=== PATIENT | female | born 1965 | race Caucasian/White ===

== ENCOUNTER → 2018-05-20 | Outpatient (CLI) | payer MEDICAID ==
[~2018-05-20] MED LIST: CETI10TA20 PO; CYCL10TA9 PO; GABA-488 PO; Oxycodone Hcl PO
--- NOTE | 2018-05-20 12:50 | Diagnostic Imaging Report ---
CLINICAL INDICATION: Patient with cervicalgia. EXAMINATION: MRI of the cervical spine performed without IV contrast. Sequences include sagittal T2, sagittal T1, sagittal T2 fat-sat, and axial T2. COMPARISON: CT scan of the cervical spine dated 06/09/2016. FINDINGS: There are interval postop changes to the cervical spine with placement of C5 through C7 posterior cervical fusion hardware with susceptibility artifact obscuring the region. Again seen C5 through C7 anterior cervical disc fusion. There is no paraspinal soft tissue fluid collection seen. Limited visualization of the posterior fossa is unremarkable. The susceptibility artifact obscures portions of the cervical cord in the region, but otherwise the cervical cord shows no significant abnormality as visualized. C1-C2: There are degenerative spurs involving the atlantoodontoid interval anteriorly. There is no significant central canal narrowing. C2-C3: There is again seen hmtr-jb-zsmrnquo left facet arthropathy with moderate left neural foramen narrowing which is also seen on the prior study. There is no significant central canal narrowing. C3-C4: There is moderate left facet arthropathy and mild right facet arthropathy. There is mild right neural foramen narrowing and severe left neural foramen narrowing which has progressed. There is mild central canal narrowing. C4-C5: There is a small central posterior disc extrusion/herniation, moderate left facet arthropathy and mild right facet arthropathy. There is no significant right neural foramen narrowing. There is zjbremxt-jx-ycnysb left neural foramen narrowing which appears to have minimally progressed. There is moderate central canal narrowing. C5-C6: There is ligamentum flavum buckling and posterior vertebral body prominence which causes moderate central canal narrowing. Patient also was noted to have a central canal narrowing from posterior spurs in the prior study. The neural foramen regions are obscured by susceptibility artifact. C6-C7: There is no significant neural foramen narrowing as visualized. There is no significant central canal narrowing. C7-T1: There is a minimal sized posterior disc bulge. There is no significant central canal or neural foramen narrowing. IMPRESSION: 1.: Interval postop changes to the cervical spine with placement of C5 through C7 posterior spinal fusion hardware. There is again seen C5 through C7 anterior cervical disc fusion. There is no paraspinal fluid collection seen. Susceptibility hardware artifact obscures portions of this exam in the region, as described above. 2: There is a C4-C5 posterior disc herniation and left facet arthropathy which causes zdlvftkx-hb-nifitk left neural foramen narrowing and moderate central canal narrowing. It is difficult to compare to prior study, as prior study did not show the central canal soft tissue as well as this MRI. 3: Again seen moderate central canal narrowing at the C5-C6 level due to ligamentum flavum buckling and posterior vertebral body prominence. Dictated by: Dictated on workstation # [id number]
== END ==
LOC: RAD 10:30
PROVIDERS: ATTEND Physician Assistant
DX: M48.02 Spinal stenosis, cervical region (principal); M47.812 Spondylosis without myelopathy or radiculopathy, cervical region; M50.20 Other cervical disc displacement, unspecified cervical region; Z98.1 Arthrodesis status
CPT/HCPCS: 72141

== ENCOUNTER → 2018-11-29 | Outpatient (CLI) | payer MEDICAID ==
--- NOTE | 2018-11-29 10:53 | Diagnostic Imaging Report ---
Indication: Arthritis and chronic knee pain. Time of exam: 10:39 AM Multiple views bilateral knees were obtained. Both knees demonstrate severe medial compartmental degenerative change. There is complete loss of the medial compartment joint spaces. There is also significant patellofemoral degenerative change bilaterally. Prominent marginal osteophytes are present. The lateral compartments are fairly well maintained. Articular surfaces are smooth. No fracture, dislocation or effusion is seen. Impression: Severe degenerative changes bilaterally. No acute bony abnormality is detected. Dictated by: Dictated on workstation # [id number]
== END ==
LOC: RAD FS 10:31
PROVIDERS: ATTEND Nurse Practitioner
DX: M17.0 Bilateral primary osteoarthritis of knee (principal)

== ENCOUNTER → 2019-05-31 | Outpatient (CLI) | payer MEDICAID ==
--- NOTE | 2019-05-31 10:57 | Diagnostic Imaging Report ---
INDICATION: Screening for osteoporosis. COMPARISON: None. FINDINGS: There are no prior studies available for comparison. The bone mineral density of the hips and spine was measured. The T score for the spine is 1.0. This value is well within normal limits. The total T score for the left hip is 0.1. This value is also within normal limits. The T score for the left femoral neck is -1.1. This does indicate mild osteopenia. The total T score for the right hip is -0.7. This value also falls within the range of normal but the T score for the right femoral neck is -1.3 and this indicates mild osteopenia. AP Spine L1-L4: [BMD (g/cm2): 1.315] [T-Score: 1.0] [Z-Score: 0.6] [BMD Previous: na] [BMD % Change: na] LT Hip Neck: [BMD (g/cm2): 0.883] [T-Score: -1.1] [Z-Score: -0.8] LT Hip Total: [BMD (g/cm2):1.023] [T-Score:0.1] [Z-Score: 0.0] [BMD Previous: na] [BMD % Change: na] RT Hip Neck: [BMD (g/cm2):0.864] [T-Score:-1.3] [Z-Score:-1.0] RT Hip Total: [BMD (g/cm2):0.914] [T-score:-0.7] [Z-Score:-0.9] [BMD Previous:na] [BMD % Change:na] *Indicates significant change from prior examination based on 95% confidence level. World Health Organization criteria for BMD interpretation classify patients as Normal (T-score at or above -1.0), Osteopenic (T-score between -1.0 and -2.5) or Osteoporotic (T-score at or below -2.5). LIMITATIONS AND MODIFICATION: None. FRACTURE RISK (FRAX SCORE): The ten year probability of (%): Major Osteoporotic Fracture: [na] Hip Fracture: [na] IMPRESSION: 1. The bone mineral density of the spine and the total hip scores are within normal limits. 2. The T-scores for the femoral necks do indicate mild osteopenia however. 3. See below National Osteoporosis Foundation guidelines on when to potentially initiate pharmacologic therapy. Based on the National Osteoporosis Foundation Guidelines, pharmacologic treatment should be initiated in any of the following, unless clinical conditions suggest otherwise: * Any patient with prior fragility fracture of the hip or vertebrae. A spine fracture indicates 5X risk for subsequent spine fracture and 2X risk for subsequent hip fracture. * Osteoporosis (T-score <-2.5). * Postmenopausal women and men age 50 and older with low bone mass/osteopenia (T-score between -1.0 and -2.5) by DXA and 10-year major osteoporotic fracture greater than 20% or a 10-year probability of hip fracture greater than 3%. These fracture risks are supplied above in the FRAX score, if applicable. * Clinician judgement and/or patient preferences may indicate treatment for people with 10-year fracture probabilities above or below these levels. Dictated by: Dictated on workstation # [id number]
--- NOTE | 2019-06-02 18:39 | Diagnostic Imaging Report ---
EXAMINATION: Digital mammogram bilateral screening. The current study was also evaluated with a Computer Aided Detection (CAD) system. 3-D tomosynthesis was also performed and reviewed. INDICATION: Screening. This study was compared to the prior exams of 08/12/2016 and 06/07/2015. At this time, there are no current complaints. FINDINGS: There are scattered fibroglandular densities in both breasts which could obscure a lesion. When compared to the prior study, there has been no significant change. There is no primary or secondary sign of malignancy noted. The 3D tomographic views also fail to show any sign of malignancy. IMPRESSION: 1. There is no evidence of malignancy. 2. The patient should have her annual bilateral screening mammogram on schedule in May 2020. ACR BI-RADS Category 1: Negative. Result letter will be mailed to the patient. Note: At least 10% of breast cancer is not imaged by mammography. Dictated by: Dictated on workstation # [id number]
== END ==
LOC: RAD 08:49
PROVIDERS: ATTEND Nurse Practitioner Primary Care
DX: Z13.820 Encounter for screening for osteoporosis (principal); Z12.31 Encounter for screening mammogram for malignant neoplasm of breast; M85.89 Other specified disorders of bone density and structure, multiple sites; N95.9 Unspecified menopausal and perimenopausal disorder
CPT/HCPCS: 77067; 77080

== ENCOUNTER 2019-06-06 12:59 | Outpatient (CLI) | payer MEDICAID ==
[~2019-06-06] VITALS: Ht 157.5 cm; Wt 112.9 kg
[2019-06-06 13:07] VITALS: BP 122/78
[2019-06-06 13:45] LABS: BASOPHILS # (AUTO) 0.1 10^3/uL (0.0-0.1); BASOPHILS % (AUTO) 1 % (0-10); EOSINOPHILS # (AUTO) 0.1 10^3/uL (0.0-0.3); EOSINOPHILS % (AUTO) 1 % (0-10); HEMATOCRIT 39 % (35-52); HEMOGLOBIN 12.8 G/DL (11.5-16.0); LYMPHOCYTES # (AUTO) 2.7 X 10^3 (1.0-4.0); LYMPHOCYTES % (AUTO) 27 % (12-44); MEAN CORPUSCULAR HEMOGLOBIN 31 PG (25-34); MEAN CORPUSCULAR HGB CONC 33 G/DL (32-36); MEAN CORPUSCULAR VOLUME 94 FL (80-99); MEAN PLATELET VOLUME 9.9 FL (7.4-10.4); MONOCYTES # (AUTO) 0.7 X 10^3 (0.0-1.0); MONOCYTES % (AUTO) 7 % (0-12); NEUTROPHILS # (AUTO) 6.3 X 10^3 (1.8-7.8); NEUTROPHILS % (AUTO) 64 % (42-75); PLATELET COUNT 327 10^3/uL (130-400); RED CELL DISTRIBUTION WIDTH 14.1 % (10.0-14.5); WHITE BLOOD COUNT 9.8 10^3/uL (4.3-11.0)
--- NOTE | 2019-06-06 13:52 | Diagnostic Imaging Report ---
Indication: Preop knee arthroplasty PA and lateral chest Heart size and pulmonary vascularity are normal. Lungs are clear. There are no effusions or pneumothoraces. IMPRESSION: Negative chest Dictated by: Dictated on workstation # [id number]
[2019-06-06 13:59] LABS: BILIRUBIN,URINE NEGATIVE (NEGATIVE); CLARITY,URINE CLEAR; COLOR,URINE YELLOW; GLUCOSE, URINE (UA) NEGATIVE (NEGATIVE); KETONES,URINE NEGATIVE (NEGATIVE); LEUKOCYTE ESTERASE ,URINE 1+ (NEGATIVE); NITRITE,URINE NEGATIVE (NEGATIVE); PH,URINE 8 (5-9); PROTEIN,URINE NEGATIVE (NEGATIVE); UROBILINOGEN,URINE 1 MG/DL (NORMAL)
[2019-06-06 14:00] LABS: INR 1.1 (0.8-1.4); PROTHROMBIN TIME PATIENT 14.2 SEC (12.2-14.7)
[2019-06-06 14:06] LABS: ALANINE AMINOTRANSFERASE 15 U/L (0-55); ALBUMIN 3.9 GM/DL (3.2-4.5); ALKALINE PHOSPHATASE 101 U/L (40-136); BILIRUBIN,TOTAL 0.4 MG/DL (0.1-1.0); BUN/CREATININE RATIO 14; CALCIUM 9.1 MG/DL (8.5-10.1); CARBON DIOXIDE 28 MMOL/L (21-32); CHLORIDE 107 MMOL/L (98-107); CREATININE SERUM 0.79 MG/DL (0.60-1.30); GFR ESTIMATED > 60; GLUCOSE 98 MG/DL (70-105); SODIUM 142 MMOL/L (135-145); TOTAL PROTEIN 6.9 GM/DL (6.4-8.2)
[2019-06-06 14:07] LABS: BACTERIA,URINE FEW /HPF
[2019-06-06 14:18] LABS: ERYTHROCYTE SEDIMENTATION RATE 23 MM/HR (0-30)
[2019-06-06] MEDS ORDERED: METH2.5T PO (15:01)
[2019-06-06] MEDS ORDERED: FOLI1TAB24 PO (15:01)
[2019-06-06] MEDS ORDERED: GABA800T10 PO (15:01)
[2019-06-06] MEDS ORDERED: CETI1TAB61 PO (15:28)
== END 2019-06-06 13:55 | disposition home or self-care (01) ==
LOC: PREOP 12:59
PROVIDERS: ATTEND Orthopaedic Surgery
DX: M17.12 Unilateral primary osteoarthritis, left knee (principal)
CPT/HCPCS: 36415; 71046; 80053; 81000; 85025; 85610; 85652; 86850; 86900; 86901; 87081; 87088

== ENCOUNTER 2019-06-08 07:23 | Inpatient (IN) | payer MEDICAID ==
--- NOTE | 2019-06-03 07:20 | HISTORY AND PHYSICAL ---
DATE OF SERVICE: ADMISSION HISTORY AND PHYSICAL This will be for inpatient admission on 06/01/2019 for left total knee arthroplasty. The patient will require regular inpatient admission due to gait abnormalities, pain management and need for physical therapy. HISTORY OF PRESENT ILLNESS: The patient is a 53-year-old female with known osteoarthritis of bilateral knees. Radiographs revealed severe tricompartmental osteoarthritis. She reports that she has lost 25 pounds and has continued to lose weight. She has undergone treatment with injections, anti-inflammatories and rest, but has had progressive worsening of her knee pain and because of this, she elected to proceed with surgical intervention. REVIEW OF SYSTEMS: No chest pain, no shortness of breath, no dysuria. PAST MEDICAL HISTORY: Anxiety disorder, osteoarthritis. PAST SURGICAL HISTORY: Carpal tunnel release, cervical spine and shoulder arthroscopy. FAMILY HISTORY: Significant for cancer. PRIMARY CARE PROVIDER: Dr. Harris. MEDICATIONS: Gabapentin, Zyrtec, methotrexate and folic acid. ALLERGIES: IBUPROFEN, ALEVE, TYLENOL, BENADRYL and BACTRIM. SOCIAL HISTORY: The patient denies alcohol, tobacco use. PHYSICAL EXAMINATION: GENERAL: The patient is well developed, well-nourished, in no acute distress. HEENT: Normocephalic, atraumatic. Pupils are equal, round, reactive to light. Oropharynx is clear. NECK: Supple, no lymphadenopathy. LUNGS: Clear to auscultation bilaterally. HEART: Regular rate and rhythm. ABDOMEN: Soft, nontender, nondistended. EXTREMITIES: The left knee demonstrates varus alignment. She has a moderate effusion noted. There is no erythema or warmth. She ambulates with an antalgic gait. Range of motion is 0/3/125. There is no varus valgus laxity. Negative anterior and posterior drawer. IMPRESSION: Left knee severe osteoarthritis. PLAN: Left total knee arthroplasty. The risks, benefits, options, ramifications and recovery have been discussed at length with the patient. She understands and wishes to proceed. Job ID: [id number] DocumentID: [id number] Dictated Date: 05/20/2019 11:18:43 Mineral Engineer Date: 05/20/2019 12:54:32 Dictated By: STEFAN EVANS MD
--- NOTE | 2019-06-06 15:29 | NUR ---
CALLED [facility] IN [place] TO VERIFY PRESCRIPTIONS ENTERED IN PREOP. [facility] [facility] FILLED: 05-30-19 GABAPENTIN 800MG TID 05-13-19 FOLIC ACID 1MG DAILY ON DAYS NOT TAKE METHOTREXATE 05-13-19 METHOTREXATE 2.5MG 6 TABS ONCE WEEKLY 05-13-19 ZYRTEC D 12 HOURS BID
[~2019-06-08] VITALS: Ht 157 cm; Wt 112.9 kg
[2019-06-08] VITALS (10 sets, daily range): BP systolic 114–146; BP diastolic 65–97
[~2019-06-08 07:23] MED LIST changes: +CETI1TAB61 PO; +FOLI1TAB24 PO; +GABA800T10 PO; +METH2.5T PO
[2019-06-08] MEDS ORDERED: LORATADINE (CLARITIN) 10 MG TAB PO PRN (07:30)
[2019-06-08] MEDS ORDERED: morphine PCA 100 MG/100 ML BAG IV PRN (07:30)
--- NOTE | 2019-06-08 07:35 | Progress Note-Pre Operative ---
Pre-Operative Progress Note H&P Reviewed The H&P was reviewed, patient examined and no changes noted. Date Seen by Provider: Jun 08, 2019 Time Seen by Provider: 07:35 Date H&P Reviewed: Jun 08, 2019 Time H&P Reviewed: 07:35 Pre-Operative Diagnosis: left knee primary osteoarthritis STEFAN EVANS MD Jun 08, 2019 07:35
--- NOTE | 2019-06-08 07:36 | Progress Note-Post Operative ---
Post-Operative Progess Note Surgeon (s)/Plan Rep (s) Surgeon STEFAN EVANS MD Plan Rep: Guille Vidal Pre-Operative Diagnosis left knee primary osteoarthritis Post-Operative Diagnosis left knee primary osteoarthritis Procedure & Operative Findings Date of Procedure 06/08/19 Procedure Performed/Findings left total knee arthroplasty Anesthesia Type GETA Estimated Blood Loss Estimated blood loss (mL): minimal Specimens/Packing Specimens Removed none Packing: none STEFAN EVANS MD Jun 08, 2019 07:36
[2019-06-08] MEDS ORDERED: OXYC1TAB87 PO (07:37)
--- NOTE | 2019-06-08 07:39 | D/C HH Face to Face Order ---
D/C Face to Face Orders Reconcile Patient Problems Problems Reviewed?: Yes Instructions for Patient [facility] [employer], Patient Instructions/FollowUp: three weeks Physician to follow Patient: three weeks Discharge Diet for Home: Regular Diet Patient Data-Allergies,Ht & Wt Patient Allergies: Coded Allergies: acetaminophen (Verified Allergy, Unknown, ITCH ALL OVER, 11/19/15) diphenhydramine (Verified Allergy, Unknown, EYES SWELL , 11/19/15) ibuprofen (Verified Allergy, Unknown, EYES SWELL, 11/19/15) naproxen (Verified Allergy, Unknown, EYE SWELLS, 11/19/15) sulfamethoxazole (Verified Allergy, Unknown, Itching, 06/06/19) trimethoprim (Verified Allergy, Unknown, Itching, 06/06/19) Height (Feet): 5 Height (Inches): 2.00 Weight (Pounds): 297 Weight (Ounces): 1.0 Home Health Need/Face to Face Date of Face to Face: Jun 08, 2019 Clinical Findings: Instability, Muscle weakness, Pain with ambulation, Unsteady gait I have seen Pt itht-bp-kpyz: Yes Discharged To: Home Diagnosis/Conditions: left total knee arthroplasty Patient is Homebound due to: Nery fall risk due to instabilty, Muscle weakness, Pain w/ambulation Homebound Status Due to the above stated illness, injury or surgical procedure (medical condition or diagnosis) and associated clinical findings, the patient is homebound because of his/her inability to leave home except with aid of a supportive device and/or person AND leaving the home requires a considerable and taxing effort or is medically contraindicated. Pt req the following assistanc: [facility] Nursing Orders Home Health Services Order: Physical Therapy-Evaluate & Treat DC knee karen and apply steri strips 06/22/19 OK to begin on Thursday Therapy Orders Therapy Orders: Physical Therapy, PT to assess for OT Therapy Specific Orders: Eval assistive deivces, Teach enviro modific ations/safety, Gait training, Increase strength/endurance, Provider maintenance therapy, Restore ROM Certify Stmt I certify that this patient is under my care and that I, a nurse practitioner or a physician; a hr administrative assistant working with me, had a face to face encounter that - meets the physician face to face encounter requirements with this patient as dated. STEFAN EVANS MD Jun 08, 2019 07:39
[2019-06-08] MEDS ORDERED: CEFUROXIME INJECTION 1,500 MG in WATER (STERILE) FOR INJECTION 15 ML IV ONE (07:45)
[2019-06-08] MEDS ORDERED: CATHETER FLUSH 10 ML SYR IV PRN (08:00)
[2019-06-08] MEDS ORDERED: INTRA-ARTICULAR IU ONE ×5 (08:15)
[2019-06-08] MEDS ORDERED: MIDAZOLAM 2 MG/2 ML (VERSED) VIAL ONE (08:27)
[2019-06-08] MEDS ORDERED: SCOPOLAMINE 1.5 MG (TRANSDERM-SCOP) PATCH TD ONE (08:30)
[2019-06-08] MEDS ORDERED: ONDANSETRON 4 MG/2 ML (SDV) Z0FRAN IVP ONE (08:30)
[2019-06-08] MEDS ORDERED: SCOPOLAMINE 1.5 MG (TRANSDERM-SCOP) PATCH ONE (08:50)
[2019-06-08] MEDS ORDERED: proPOfol 200 MG/20 ML (DIPRIVAN) VIAL IV ONE (08:54)
[2019-06-08] MEDS ORDERED: LIDOCAINE PF 2% 5 ML (XYLOCAINE) VIAL ONE (08:54)
[2019-06-08] MEDS ORDERED: BUPIVACAINE 0.25% 30 ML (SENSORCAINE) VIAL ONE (08:54)
[2019-06-08] MEDS ORDERED: ROCURONIUM 10 MG/ML 5 ML SYRINGE IV ONE (08:54)
[2019-06-08] MEDS ORDERED: fentaNYL INJECTION 100 MCG/2 ML AMP ONE ×2 (08:55→10:28)
[2019-06-08] MEDS ORDERED: TRANEXAMIC ACID 100 MG/ML 10 ML INJECTION IV ONE (08:57)
[2019-06-08] MEDS: LACTATED RINGERS 1,000 ML IV PRN ×2 (08:59→10:13)
[2019-06-08] MEDS ORDERED: FAMOTIDINE 20MG/2ML IV (PEPCID) IVP ONE (09:00)
[2019-06-08] MEDS ORDERED: FAMOTIDINE 20MG/2ML IV (PEPCID) IVP SCH (09:00)
[2019-06-08] MEDS ORDERED: SEVOFLURANE (ULTANE) 15 ML INHAL SOLN ONE ×6 (10:37)
[2019-06-08] MEDS ORDERED: DEXAMETHASONE 10 MG/ML (DECADRON) 1 ML VIAL ONE (10:38)
[2019-06-08] MEDS ORDERED: ONDANSETRON 4 MG/2 ML (SDV) Z0FRAN ONE (10:38)
[2019-06-08] MEDS ORDERED: morphine INJ 10 MG/ML 1ML (SYR OR VIAL) IVP ONE (11:30)
[2019-06-08] MEDS ORDERED: ONDANSETRON 4 MG/2 ML (SDV) Z0FRAN IVP PRN (11:30)
[2019-06-08] MEDS ORDERED: morphine INJ 10 MG/ML 1ML (SYR OR VIAL) ONE (11:32)
--- NOTE | 2019-06-08 12:02 | Progress Note ---
Standard Progress Note Progress Notes/Assess & Plan Date Seen by a Provider: Jun 08, 2019 Time Seen by a Provider: 12:01 Progress/Assessment & Plan post op check no complaints radiographs--HW well positioned without fracture LLE-intact DF and PF of toes and ankle. sensation intact to light touch. 2 plus DP pulse with brisk cap refill s/p LTKA mobilize as able STEFAN EVANS MD Jun 08, 2019 12:02
--- NOTE | 2019-06-08 12:28 | Diagnostic Imaging Report ---
Left knee at 1136 hours. INDICATION: Postop. AP and lateral views of the left knee were received from the OR. FINDINGS: In the interval since the prior exam of 11/29/2018, the patient has undergone a total knee arthroplasty procedure. The prosthetic components seem to be in good position. There is gas in the soft tissues about the knee joint and skin karen are evident along the anterior aspect of the knee joint. There is no fracture or acute bony abnormality visualized. IMPRESSION: Stable postoperative left knee. Dictated by: Dictated on workstation # [id number]
--- NOTE | 2019-06-08 13:00 | NUR ---
MARISOL ORTIZ admitted to room 408-1, with an admitting diagnosis of left total knee replacement by Dr. Woods , on 06/08/19 from OR via bed, accompanied by staff , family at bedside .MARISOL ORTIZ introduced to surroundings, call light, bed controls, phone, TV, temperature control, lights, meal times, smoking policy, visitor policy, side rail policy, bathrooms and showers. Patient Rights given to patient in the handbook. MARISOL ORTIZ verbalizes understanding that [facility] is not responsible for the loss or damage to any personal effects or valuables that are kept in the patients posession during their hospitalization. The following Patient Care Plans and discharge were discussed with the patient. MARISOL ORTIZ verbalizes understanding of Interdisciplinary Patient Education. Patient and family were informed about the Rapid Response Team and its purpose.
[2019-06-08] MEDS: SENNA W/DOCUSATE (SENOKOT S) TABLET PO SCH ×2 (13:29→21:11)
[2019-06-08] MEDS: NS IV 1000 ML 1,000 ML IV SCH ×2 (13:30→17:24)
--- NOTE | 2019-06-08 14:45 | Physical Therapy Evaluation ---
PT Evaluation-General Medical Diagnosis Admission Date Jun 08, 2019 at 07:23 Medical Diagnosis: left TKA Onset Date: Jun 08, 2019 Therapy Diagnosis Therapy Diagnosis: impaired mobility, strength, endurance, ROM Height/Weight Height (Feet): 5 Height (Inches): 2.00 Weight (Pounds): 297 Weight (Ounces): 1.0 Precautions Precautions/Isolations: Standard Precautions Weight Bear Status Left Lower Extremity: Left Weight Bearing/Tolerated Referral Physician: Guille Vidal Reason for Referral: Evaluation/Treatment Medical History Pertinent Medical History: Diverticulitis, OA Additional Medical History anxiety Reviewed History: Yes Social History Home: Single Level Current Living Status: Children Entry Into Home: Stairs With Railing PT Steps Into Home: 3 Prior Prior Level of Function SCALE: Activities may be completed with or without assistive devices. 4-Tnaehmkbid-ikejvpz completes the activity by him/herself with no assistance from a helper. 5-Set-up or Clean-up Assistance-helper sets up or cleans up; patient completes activity. Keaton assists only prior to or following the activity. 4-Supervision or Touching Assistance-helper provides verbal cues and/or touching/steadying and/or contact guard assistance as patient completes activity. Assistance may be provided throughout the activity or intermittently. 3-Partial/Moderate Assistance-helper does LESS THAN HALF the effort. Keaton lifts, holds or supports trunk or limbs, but provides less than half the effort. 2-Substantial/Maximal Assistance-helper does MORE THAN HALF the effort. Keaton lifts or holds trunk or limbs and provides more than half the effort. 2-Jiwamszyq-zuajuh does ALL the effort. Patient does none of the effort to complete the activity. Or, the assistance of 2 or more helpers is required for the patient to complete the activity. If activity was not attempted, code reason: 7-Patient Refused. 9-Not Applicable-not attempted and the patient did not perform the activity before the current illness, exacerbation or injury. 10-Not Attempted due to Environmental Limitations-(lack of equipment, weather restraints, etc.). 88-Not Attempted due to Medical Conditions or Safety Concerns. Bed Mobility: 6 Transfers (B,C,W/C): 6 Gait: 6 Stairs: 6 Indoor Mobility (Ambulation): Independent Stairs: Independent Patient states she used a cane on occasion PT Evaluation-Current Subjective Patient in bed pre tx, agrees to PT, has 10/10 pain in left leg. Patient is very anxious and nauseated, has sawant ready to vomit. Patient can barely perform an ankle pump and states that she has numbness from mid calf down when testing sensation. Will perform exercises and put CPM on. Pt/Family Goals to be independent at home Objective Patient Orientation: Person, Place, Situation Attachments: Oxygen, Polar Pack, IV ROM/Strength ROM Lower Extremities left knee flexion 45 degrees, extension +10 degrees Sensory Vision: Functional Hearing: Functional Sensation Right Lower Extremit: Intact Sensation Left Lower Extremity: Impaired Treatment Patient performed left knee TKA protocol x10 (AP, QS, HS, SAQ, SLR), donned CPM and fit to patient's leg and set to 46/-2 degrees. Assessment/Needs Patient has impaired mobility, strength, endurance, ROM. Patient in bed post tx with nurse call, phone, tray, all needs met. SCD's on both legs Rehab Potential: Fair PT Refrigerated Cargo Clerk Goals Refrigerated Cargo Clerk Goals PT Group Home Goals Time Frame: Jun 15, 2019 Sit to Lying (QC): 5 Lying-Sitting on Side/Bed(QC): 5 Sit to Stand (QC): 5 Roll Left to Right (QC): 5 Chair/Wgu-sz-Tchhq Xfer(QC): 5 Distance: 50' Walk 10 feet (QC): 4 Walk 50ft with 2 Turns (QC): 4 Gait Assistive Device: FWW PT Plan Problem List Problem List: Activity Tolerance, Functional Strength, Safety, Balance, Gait, Transfer, Bed Mobility, ROM Treatment/Plan Treatment Plan: Continue Plan of Care Treatment Plan: Bed Mobility, Education, Functional Activity Mai, Functional Strength, Gait, Safety, Therapeutic Exercise, Transfers Treatment Duration: Jun 15, 2019 Frequency: 11 times per week Estimated Hrs Per Day: .25 hour per day Patient and/or Family Agrees t: Yes Safety Risks/Education Patient Education: Correct Positioning, Safety Issues Teaching Recipient: Patient Teaching Methods: Demonstration, Discussion Response to Teaching: Reinforcement Needed Discharge Recommendations Plan Patient will perform bed mobility and transfer training, balance and endurance training, functional strengthening, stair training, gait training, and education, to improve functional mobility and independence at home. Therapy Discharge Recommendati: Other, See Comments (home with family) Time/GCodes Time In: 1417 Time Out: 1435 Total Billed Treatment Time: 18 Total Billed Treatment 1 visit EVL 18' OPAL SCOTT PT Jun 08, 2019 14:45
--- NOTE | 2019-06-08 15:37 | OPERATIVE REPORT ---
DATE OF SERVICE: 06/08/2019 PREOPERATIVE DIAGNOSIS: Left knee primary osteoarthritis. POSTOPERATIVE DIAGNOSIS: Left knee primary osteoarthritis. PROCEDURE: Left total knee arthroplasty. SURGEON: Ankur Evans MD BLURB WRITER: Guille Vidal, who assisted throughout the procedure and closed the incision. ANESTHESIA: General endotracheal plus femoral nerve block by Angi Wilkes CRNA. TOURNIQUET TIME: Approximately 65 minutes at 300 mmHg. ESTIMATED BLOOD LOSS: Minimal. DRAINS: None. COMPLICATIONS: None. POSTOPERATIVE PLAN: Routine protocol. The patient was transferred to the recovery room awake and in stable condition. MATERIALS: MicroPort cemented size 4 femur, cemented size 4 tibia with 12 mm insert and cemented size 32 patellar button. STATEMENT OF MEDICAL NECESSITY: The patient is a 53-year-old female with longstanding progressive left knee pain. Radiographs revealed severe tricompartmental osteoarthritis. She has tried injections, rest and activity modifications without relief. Due to functional impairment and failure to improve with conservative measures, the patient elected to proceed with surgical intervention. DESCRIPTION OF PROCEDURE: After risks and benefits of procedure were discussed and questions were answered, an informed consent was signed and placed on chart, the operative site was confirmed in the preoperative holding area initialed by the surgeon. The patient was transferred to the operating room and after adequate levels of general endotracheal anesthetic were obtained, a timeout was called, confirming the operative site. The left lower extremity was prepped and draped in the usual sterile fashion with the leg elevated and the knee flexed. Tourniquet was inflated to 300 mmHg. Standard anterior approach was utilized. Hemostasis was obtained with cautery. Medial parapatellar arthrotomy was performed leaving 1 cm cuff on the patella for later reattachment. A portion of the fat pad was resected. The ACL was resected. A subperiosteal release was performed in the proximal medial tibia being careful to stay on the bony surface. Intramedullary guide was passed into the femur. The distal cutting block was placed and distal cut was made, femur sized to a size 4. The 4 cutting block was placed parallel to the epicondylar axis and cuts were made from posterior to anterior. Subperiosteal release was carefully performed with the posterior distal femur. There was a posterior osteophyte, which was resected. Intramedullary guide was then passed into the tibia and the cutting block was placed. The drop ulices transected the intermalleolar axis and the cut was made. The baseplate was placed and drop ulices transected the intermalleolar axis. This was then prepared with the drill and keel punch. The femoral trial was placed and the trochlear cut was made. The patella was prepared by resecting 10 mm off the undersurface. The peg guide was placed and peg holes were drilled. The 32 trial was placed. A 12 mm insert was placed on the tibia. The knee had full extension and 120 degrees of flexion, which was only inhibited by the patient's pannus. There was no anterior/posterior or medial/lateral laxity in flexion or extension and the patella tracked well. The trials were removed. The joint was irrigated with pulse lavage. The periarticular block was placed in the posterior capsule, medial and lateral retinaculum, extensor mechanism and subcutaneous tissues. The joint was further irrigated. The bone ends were irrigated and dried. The tibial baseplate was cemented into position. Excessive cement was removed. Superior surface was irrigated and dried and the patellar button was cemented into position. Excessive cement was removed. The femoral prosthesis was placed. Excessive cement was removed. Once the cement had cured, the knee was taken through range of motion. Full extension was easily obtained 120 degrees of flexion with gravity was easily obtained. There was no anterior/posterior or medial/lateral laxity in flexion or extension. The joint was further irrigated. The arthrotomy was closed with #2 Tevdek in dtxfti-oq-gwufb interrupted fashion. The knee was flexed. The patella tracked well. No undue tension was noted at the repair site. Subcutaneous tissues were irrigated using a total of 6 liters throughout the procedure. A 0 Vicryl was used to deep subcutaneous tissue, 2-0 Vicryl for the superficial subcutaneous tissue, karen used on the skin. A soft dressing was applied. The tourniquet was deflated and the patient was transferred to recovery room awake and in stable condition. Job ID: [id number] DocumentID: [id number] Dictated Date: 06/08/2019 11:19:21 Retail Service Lead Merchandiser Date: 06/08/2019 15:36:10 Dictated By: ANKUR EVANS MD
[2019-06-08] MEDS: CEFUROXIME INJECTION 750 MG in WATER (STERILE) FOR INJECTION 10 ML IV SCH (17:24)
[2019-06-09 00:52] VITALS: BP 111/72
[2019-06-09] MEDS: CEFUROXIME INJECTION 750 MG in WATER (STERILE) FOR INJECTION 10 ML IV SCH (01:29)
[2019-06-09] MEDS: NS IV 1000 ML 1,000 ML IV SCH ×2 (01:29→12:31)
[2019-06-09 04:20] VITALS: BP 120/81
[2019-06-09 05:22] LABS: BASOPHILS % (AUTO) 0 % (0-10); EOSINOPHILS % (AUTO) 0 % (0-10); HEMATOCRIT 34 % (35-52); LYMPHOCYTES # (AUTO) 1.3 X 10^3 (1.0-4.0); LYMPHOCYTES % (AUTO) 9 % (12-44); MEAN CORPUSCULAR HEMOGLOBIN 31 PG (25-34); MEAN CORPUSCULAR HGB CONC 32 G/DL (32-36); MEAN CORPUSCULAR VOLUME 95 FL (80-99); MEAN PLATELET VOLUME 9.8 FL (7.4-10.4); MONOCYTES # (AUTO) 1.1 X 10^3 (0.0-1.0); MONOCYTES % (AUTO) 7 % (0-12); NEUTROPHILS # (AUTO) 12.5 X 10^3 (1.8-7.8); NEUTROPHILS % (AUTO) 84 % (42-75); PLATELET COUNT 319 10^3/uL (130-400); RED CELL DISTRIBUTION WIDTH 14.2 % (10.0-14.5); WHITE BLOOD COUNT 14.9 10^3/uL (4.3-11.0)
[2019-06-09 06:05] LABS: ALANINE AMINOTRANSFERASE 13 U/L (0-55); ALBUMIN 3.4 GM/DL (3.2-4.5); ALKALINE PHOSPHATASE 75 U/L (40-136); BILIRUBIN,TOTAL 0.4 MG/DL (0.1-1.0); BUN/CREATININE RATIO 13; CALCIUM 8.4 MG/DL (8.5-10.1); CARBON DIOXIDE 21 MMOL/L (21-32); CHLORIDE 106 MMOL/L (98-107); CREATININE SERUM 0.83 MG/DL (0.60-1.30); GFR ESTIMATED > 60; GLUCOSE 146 MG/DL (70-105); POTASSIUM 4.1 MMOL/L (3.6-5.0); SODIUM 137 MMOL/L (135-145); TOTAL PROTEIN 6.2 GM/DL (6.4-8.2)
[2019-06-09] MEDS: MULTIVIT W/MINERALS TAB (THERAGRAN M) PO SCH (06:55)
[2019-06-09] MEDS: ENOXAPARIN 40 MG/0.4 ML (LOVENOX) SYR SC SCH ×2 (06:55→19:49)
[2019-06-09] MEDS ORDERED: ENOXAPARIN 30 MG/0.3 ML (LOVENOX) SYR SC SCH (07:30)
--- NOTE | 2019-06-09 08:07 | Progress Note ---
Standard Progress Note Progress Notes/Assess & Plan Date Seen by a Provider: Jun 09, 2019 Time Seen by a Provider: 08:06 Progress/Assessment & Plan post op check no complaints radiographs--HW well positioned without fracture LLE-intact DF and PF of toes and ankle. sensation intact to light touch. 2 plus DP pulse with brisk cap refill s/p LTKA mobilize as able Final Diagnosis no complaints Vital Signs Date Time Temp Pulse Resp B/P (MAP) Pulse Ox O2 Delivery O2 Flow Rate FiO2 06/09/19 04:20 36.4 108 20 120/81 (94) 97 Room Air 06/09/19 00:52 36.6 96 20 111/72 (85) 95 Room Air 06/08/19 21:10 Room Air 06/08/19 20:19 36.6 92 18 114/65 (81) 95 Room Air 06/08/19 16:00 36.4 84 18 114/69 (84) 96 Room Air 06/08/19 15:06 Room Air 06/08/19 14:36 95 Room Air 06/08/19 12:15 36.1 86 18 146/90 (108) 96 Nasal Cannula 2.00 06/08/19 12:15 Nasal Cannula 2 06/08/19 12:15 36.5 18 143/87 (105) 95 Nasal Cannula 2 06/08/19 12:10 18 131/84 (100) 95 Nasal Cannula 2 06/08/19 12:05 Nasal Cannula 2 06/08/19 12:00 18 141/86 (104) 94 Room Air 06/08/19 11:50 OxyMask 6 06/08/19 11:50 18 133/80 (97) 98 OxyMask 6 06/08/19 11:40 18 136/89 (105) 99 OxyMask 6 06/08/19 11:35 OxyMask 6 06/08/19 11:30 18 140/97 (111) 98 OxyMask 6 06/08/19 11:20 OxyMask 6 06/08/19 11:20 36.6 10 142/86 (104) 97 OxyMask 6 I & O 06/09/19 07:00 Intake Total 1845 ml Output Total 100 ml Balance 1745 ml Laboratory Tests Test 06/09/19 04:45 Range/Units White Blood Count 14.9 H 4.3-11.0 10^3/uL Red Blood Count 3.57 L 4.35-5.85 10^6/uL Hemoglobin 11.0 L 11.5-16.0 G/DL Hematocrit 34 L 35-52 % Mean Corpuscular Volume 95 80-99 FL Mean Corpuscular Hemoglobin 31 25-34 PG Mean Corpuscular Hemoglobin Concent 32 32-36 G/DL Red Cell Distribution Width 14.2 10.0-14.5 % Platelet Count 319 130-400 10^3/uL Mean Platelet Volume 9.8 7.4-10.4 FL Neutrophils (%) (Auto) 84 H 42-75 % Lymphocytes (%) (Auto) 9 L 12-44 % Monocytes (%) (Auto) 7 0-12 % Eosinophils (%) (Auto) 0 0-10 % Basophils (%) (Auto) 0 0-10 % Neutrophils # (Auto) 12.5 H 1.8-7.8 X 10^3 Lymphocytes # (Auto) 1.3 1.0-4.0 X 10^3 Monocytes # (Auto) 1.1 H 0.0-1.0 X 10^3 Eosinophils # (Auto) 0.0 0.0-0.3 10^3/uL Basophils # (Auto) 0.0 0.0-0.1 10^3/uL Sodium Level 137 135-145 MMOL/L Potassium Level 4.1 3.6-5.0 MMOL/L Chloride Level 106 98-107 MMOL/L Carbon Dioxide Level 21 21-32 MMOL/L Anion Gap 10 5-14 MMOL/L Blood Urea Nitrogen 11 7-18 MG/DL Creatinine 0.83 0.60-1.30 MG/DL Estimat Glomerular Filtration Rate > 60 BUN/Creatinine Ratio 13 Glucose Level 146 H 70-105 MG/DL Calcium Level 8.4 L 8.5-10.1 MG/DL Corrected Calcium 8.9 8.5-10.1 MG/DL Total Bilirubin 0.4 0.1-1.0 MG/DL Aspartate Amino Transf (AST/SGOT) 13 5-34 U/L Alanine Aminotransferase (ALT/SGPT) 13 0-55 U/L Alkaline Phosphatase 75 40-136 U/L Total Protein 6.2 L 6.4-8.2 GM/DL Albumin 3.4 3.2-4.5 GM/DL LLE--dressing intact.NVI distally. no calf tenderness s/p LTKA PT/OT likely DC tomorrow STEFAN EVANS MD Jun 09, 2019 08:06
--- NOTE | 2019-06-09 08:09 | Consultation - Hospitalist ---
HPI History of Present Illness: HPI/Chief Complaint Chief complaint: s/p left knee replacement per Dr. Woods POD # 1 in need of medical management HPI: This is a 53yo[address] of [address] Harris at [facility] who is s/p uncomplicated left knee replacement by dr. Woods, POD# 1. Currently she reports that the pain is improved. Overall having no SOB, or chest pain. I did review labs, potassium was 3.[address] on supplement but otherwise she denies any other significant p roblems. I checked meds and labs and medical history. Source: patient Exam Limitations: no limitations Date Seen 06/09/19 Attending Physician Ankur Woods MD PCP Laurence Harris MD Referring Physician Date of Admission Jun 08, 2019 at 07:23 Home Medications & Allergies Home Medications Reviewed patient Home Medication Reconciliation performed by pharmacy medication reconciliations solids control technician and/or nursing. Patients Allergies have been reviewed. Allergies Allergies Coded Allergies acetaminophen (Verified Allergy, Unknown, ITCH ALL OVER, 11/19/15) diphenhydramine (Verified Allergy, Unknown, EYES SWELL , 11/19/15) ibuprofen (Verified Allergy, Unknown, EYES SWELL, 11/19/15) naproxen (Verified Allergy, Unknown, EYE SWELLS, 11/19/15) sulfamethoxazole (Verified Allergy, Unknown, Itching, 06/06/19) trimethoprim (Verified Allergy, Unknown, Itching, 06/06/19) Past Ukrraqb-Seayfs-Njsnlt Hx Past Med/Social Hx: Reviewed Nursing Past Med/Soc Hx, Reviewed and Corrections made Patient Social History Marrital Status: single Employed/Student: unemployed Alcohol Use: Denies Use Recreational Drug Use: No Smoking Status: Never a Smoker Physical Abuse Screen: No Sexual Abuse: No Recent Foreign Travel: No Contact w/other who traveled: No Recent Hopitalizations: No Recent Infectious Disease Expo: No Immunizations Up To Date Date of Pneumonia Vaccine: May 04, 2019 Date of Influenza Vaccine: May 02, 2019 Seasonal Allergies Seasonal Allergies: Yes Past Medical History Surgeries: Orthopedic Neurological: Neuropathy Gastrointestinal: Diverticulosis Musculoskeletal: Arthritis, Chronic Back Pain History of Blood Disorders: No Family History Arthritis G8 SISTER Cardiovascular disease 19 FATHER Diabetes mellitus G8 SISTER Dysphasia 19 MOTHER Respiratory disorder 19 FATHER (lung cancer) 19 MOTHER (lung ca) Review of Systems Constitutional: see HPI, weakness EENTM: no symptoms reported Respiratory: no symptoms reported Cardiovascular: no symptoms reported Gastrointestinal: no symptoms reported Genitourinary: no symptoms reported Musculoskeletal: back pain, joint pain Skin: no symptoms reported Psychiatric/Neurological: No Symptoms Reported All Other Systems Reviewed Negative Unless Noted: Yes Physical Exam Physical Exam Vital Signs Vital Signs - First Documented Capillary Refill : Less Than 3 Seconds Height, Weight, BMI Height: 5'2.00" Weight: 297lbs. 1.0oz. 134.130294gy; 45.80 BMI Method: General Appearance: No Apparent Distress, WD/WN, Chronically ill Eyes: Bilateral Eye Normal Inspection, Bilateral Eye PERRL HEENT: PERRL/EOMI, Normal ENT Inspection, Pharynx Normal Neck: Full Range of Motion, Normal Inspection, Non Tender, Supple, Carotid Bruit Respiratory: Chest Non Tender, Lungs Clear, Normal Breath Sounds, No Accessory Muscle Use, No Respiratory Distress Cardiovascular: Regular Rate, Rhythm, No Edema, No Gallop, No JVD, No Murmur, Normal Peripheral Pulses Gastrointestinal: Normal Bowel Sounds, No Organomegaly, No Pulsatile Mass, Non Tender, Soft Back: Normal Inspection, No CVA Tenderness, No Vertebral Tenderness Extremity: Normal Capillary Refill, Normal Inspection, Normal Range of Motion (except post op knee), Non Tender, No Calf Tenderness, No Pedal Edema Neurologic/Psychiatric: Alert, Oriented x3, No Motor/Sensory Deficits, Normal Mood/Affect Skin: Normal Color, Warm/Dry Lymphatic: No Adenopathy Results Results/Procedures Labs Laboratory Tests 06/09/19 04:45 Patient resulted labs reviewed. Assessment/Plan Assessment and Plan Assess & Plan/Chief Complaint Assessment: s/p RTKA POD # 1 DJD of spine Hypokalemia Plan: Monitor BP Home meds BM regimen Diagnosis/Problems Diagnosis/Problems (1) Osteoarthritis of left knee Status: Chronic Qualifiers: Osteoarthritis type: primary Qualified Codes: M17.12 - Unilateral primary osteoarthritis, left knee Clinical Quality Measures DVT/VTE Risk/Contraindication: Risk Factor Score Per Nursin RFS Level Per Nursing on Admit: 4+=Very High TRACIE MONTGOMERY DO Jun 09, 2019 08:09
[2019-06-09 08:21] VITALS: BP 101/59
[2019-06-09] MEDS: SENNA W/DOCUSATE (SENOKOT S) TABLET PO SCH ×2 (09:08→20:26)
[2019-06-09] MEDS: ASPIRIN E.C. 81 MG (ECOTRIN) TAB PO SCH (09:08)
[2019-06-09] MEDS: HYDROmorphone (DILAUDID) 2 MG TAB PO PRN ×3 (09:08→19:46)
--- NOTE | 2019-06-09 10:22 | Occupational Therapy Eval ---
OT Evaluation-General/PLF Medical Diagnosis Admission Date Jun 08, 2019 at 07:23 Medical Diagnosis: left TKA Onset Date: Jun 08, 2019 Therapy Diagnosis Therapy Diagnosis: decreased ADL and functional mobility Height/Weight Height (Feet): 5 Height (Inches): 2.00 Weight (Pounds): 297 Weight (Ounces): 1.0 Precautions Precautions/Isolations: Fall Prevention, Standard Precautions Safety Interventions: None Weight Bear Status Weight Bearing Restriction: Weight Bearing/Tolerated Referral Physician: Guille Vidal Referral Reason: Activity Tolerance, Self Care, Evaluation/Treatment, Strengthening/ROM Medical History Pertinent Medical History: Diverticulitis, OA Additional Medical History OA, anxiety, cervical spine and shoulder arthroplasty Current History Per H&P: "The patient is a 53-year-old female with known osteoarthritis of bilateral knees. Radiographs revealed severe tricompartmental osteoarthritis. She reports that she has lost 25 pounds and has continued to lose weight. She has undergone treatment with injections, anti-inflammatories and rest, but has had progressive worsening of her knee pain and because of this, she elected to proceed with surgical intervention." Reviewed History: Yes Social History Home: Single Level Current Living Status: living in gkpzsc-eh-euo's home Entry Into Home: Stairs With Railing Steps Into Home: 3 Steps Inside Home: 0 ADL-Prior Level of Function SCALE: Activities may be completed with or without assistive devices. 4-Hkwcyglznd-irvjrek completes the activity by him/herself with no assistance from a helper. 5-Set-up or Clean-up Assistance-helper sets up or cleans up; patient completes activity. Wayne assists only prior to or following the activity. 4-Supervision or Touching Assistance-helper provides verbal cues and/or touchin g/steadying and/or contact guard assistance as patient completes activity. Assistance may be provided throughout the activity or intermittently. 3-Partial/Moderate Assistance-helper does LESS THAN HALF the effort. Wayne lifts, holds or supports trunk or limbs, but provides less than half the effort. 2-Substantial/Maximal Assistance-helper does MORE THAN HALF the effort. Wayne lifts or holds trunk or limbs and provides more than half the effort. 5-Kbwvrwxsk-youcqj does ALL the effort. Patient does none of the effort to complete the activity. Or, the assistance of 2 or more helpers is required for the patient to complete the activity. If activity was not attempted, code reason: 7-Patient Refused. 9-Not Applicable-not attempted and the patient did not perform the activity before the current illness, exacerbation or injury. 10-Not Attempted due to Environmental Limitations-(lack of equipment, weather restraints, etc.). 88-Not Attempted due to Medical Conditions or Safety Concerns. Self Care: Independent Functional Cognition: Independent DME/Equipment: Bath Chair, Grab Bars, Shower Hose Medication Nurse, Tub/Shower DME/Equipment Comments IND without AE previously Occupation: disabled Drive Self: Yes OT Current Status Subjective Pt seen in recliner chair, states minimal pain in L knee. Pt Ox4. Pt agreeable to OT evaluation. Mental Status/Objective Patient Orientation: Person, Place, Time, Situation, Normal For Age Attachments: IV Current Glasses/Contacts: Yes Hearing Aids: No Dentures/Partials: No Hand Dominance: Right Upper Extremity ROM WFL BUE Upper Extremity Coordination WFL BUE Upper Extremity Sensation Pt states carpal tunnel release of R hand, still states numbness around 3rd digit. Pt states paresthesias when sleeping on L side from shoulder to elbow vince th ant and posteriorly. Upper Extremity Strength WFL BUE ADL-Treatment Eating (QC): 6 Lower Body Dressing (QC): 2 (Min A R LE, Max A L LE) Other Treatments Pt alert and oriented. Pt states she went to the bathroom, no desire to complete sit to stand, bathroom needs, or dressing. Pt states prior abilities, completes doffing/ donning RLE sock with min A. Based on clinical judgment, pt would require max A with LLE sock don/ doffing. Pt left in recliner chair, call light in reach, all needs met. Education OT Patient Education: Correct positioning, Modified ADL techniques, Safety issues, Use of adapted equipment Teaching Recipient: Patient Teaching Methods: Demonstration, Discussion Response to Teaching: Verbalize Understanding, Return Demonstration OT Short Term Goals Short Term Goals Upper Body Dressing(FIM): 6 Lower Body Dressing(FIM): 3 1=Demonstrate adherence to instructed precautions during ADL tasks. 2=Patient will verbalize/demonstrate understanding of assistive devices/modifications for ADL. 3=Patient will improve strength/tolerance for activity to enable patient to perform ADL's. OT Senior Care Goals Tube Cleaner Goals Eating (QC): 6 Oral Hygiene (QC): 6 Shower/Bathe Self (QC): 5 Upper Body Dressing (QC): 6 Lower Body Dressing (QC): 4 On/Off Footwear (QC): 5 Toileting Hygiene (QC): 6 Toilet/Commode Transfer (QC): 5 Additional Goals: 1-Demonstrate ADL Tasks, 2-Verbalize Understanding, 3- ImproveStrength/Mai 1=Demonstrate adherence to instructed precautions during ADL tasks. 2=Patient will verbalize/demonstrate understanding of assistive devices/modifications for ADL. 3=Patient will improve strength/tolerance for activity to enable patient to perform ADL's. OT Education/Plan Problem List/Assessment Assessment: Decreased Activ Tolerance, Decreased Safety Aware, Impaired I ADL's, Impaired Self-Care Skills Discharge Recommendations Plan/Recommendations: Continue POC Equpiment Recommendations-D/C: Outreach Liaison, Sock Aide, Dressing Stick Treatment Plan/Plan of Care Treatment,Training & Education: Yes Patient would benefit from OT for education, treatment and training to promote independence in ADL's, mobility, safety and/or upper extremity function for ADL's. Plan of Care: ADL Retraining, Functional Mobility, Group Exercise/Act as Ind, Orthotic Fitting/Training, UE Funct Exercise/Act Treatment Duration: Jun 16, 2019 Frequency: 5 times per week Estimated Hrs Per Day: .25 hour per day Agreement: Yes Rehab Potential: Fair Time/GCodes Start Time: 09:54 Stop Time: 10:13 Total Time Billed (hr/min): 19 Billed Treatment Time 1 EVM (19) LOCO MCCLENDON OTR Jun 09, 2019 10:21
--- NOTE | 2019-06-09 10:36 | Physical Therapy Daily Note ---
PT Daily Note-Current Subjective Patient is very agreeable to participate with PT. Patient rates left knee pain 10/10 with meds issued. Pain Numeric Pain Scale: 10-Worst Possible Pain Location: Left Location Body Site: Knee Pain Description: Acute Mental Status Patient Orientation: Normal For Age Attachments: IV Transfers SCALE: Activities may be completed with or without assistive devices. 4-Zigjemgham-sgeakgj completes the activity by him/herself with no assistance from a helper. 5-Set-up or Clean-up Assistance-helper sets up or cleans up; patient completes activity. [place] assists only prior to or following the activity. 4-Supervision or Touching Assistance-helper provides verbal cues and/or touching/steadying and/or contact guard assistance as patient completes activity. Assistance may be provided throughout the activity or intermittently. 3-Partial/Moderate Assistance-helper does LESS THAN HALF the effort. [place] lifts, holds or supports trunk or limbs, but provides less than half the effort. 2-Substantial/Maximal Assistance-helper does MORE THAN HALF the effort. [place] lifts or holds trunk or limbs and provides more than half the effort. 6-Kmixaqush-jcgsyh does ALL the effort. Patient does none of the effort to complete the activity. Or, the assistance of 2 or more helpers is required for the patient to complete the activity. If activity was not attempted, code reason: 7-Patient Refused. 9-Not Applicable-not attempted and the patient did not perform the activity before the current illness, exacerbation or injury. 10-Not Attempted due to Environmental Limitations-(lack of equipment, weather restraints, etc.). 88-Not Attempted due to Medical Conditions or Safety Concerns. Transfers (B, C, W/C): 6 Roll Left to Right (QC): 6 Sit to Lying (QC): 6 Sit to Stand (QC): 6 Chair/Uzu-zb-Qappg Xfer(QC): 6 Bed to/from Chair: 6 Weight Bearing Left Lower Extremity: Left Weight Bearing/Tolerated Gait Training Does the Patient Walk?: Yes Distance: 250' Walk 10 feet (QC): 5 Walk 50 ft with 2 Turns(QC): 5 Walk 150 ft (QC): 5 Gait Assistive Device: FWW steady, antalgic, functional gait sequence Exercises Supine Ex: Ankle pumps, Quad Set, Heel Slides, Straight leg raise Supine Reps: 15 Seated Therapy Exercises: Long arc quads Seated Reps: 15 Assessment Patient toileted self without difficulty. She tolerated treatment well and is up in recliner with needs met. Plan dismissal in a.m. to home with home health per patient report. PT [facility] Goals [facility] Goals PT [facility] Goals Time Frame: Jun 15, 2019 Sit to Lying (QC): 5 Lying-Sitting on Side/Bed(QC): 5 Sit to Stand (QC): 5 Roll Left to Right (QC): 5 Chair/Cna-mp-Xohuy Xfer(QC): 5 Distance: 50' Walk 10 feet (QC): 4 Walk 50ft with 2 Turns (QC): 4 Gait Assistive Device: FWW PT Plan Treatment/Plan Treatment Plan: Continue Plan of Care Treatment Plan: Bed Mobility, Education, Functional Activity Mai, Functional Strength, Gait, Safety, Therapeutic Exercise, Transfers Treatment Duration: Jun 15, 2019 Frequency: 11 times per week Estimated Hrs Per Day: .25 hour per day Patient and/or Family Agrees t: Yes Time/GCodes Time In: 855 Time Out: 918 Total Billed Treatment Time: 23 Total Billed Treatment 1 visit GT 8 min EX 15min BJORN ESPANA PT Jun 09, 2019 10:36
[2019-06-09 12:05] VITALS: BP 115/67
--- NOTE | 2019-06-09 13:59 | Anesthesia-General Post-Op ---
General Patient Condition Mental Status/LOC: Same as Preop Cardiovascular: Satisfactory Nausea/Vomiting: Absent Respiratory: Satisfactory Pain: Controlled Complications: Absent Post Op Complications Complications None Follow Up Care/Instructions Patient Instructions None needed. Anesthesia/Patient Condition Patient Condition Patient is doing well, no complaints, stable vital signs, no apparent adverse anesthesia problems. AMALIA DASILVA DO Jun 09, 2019 13:59
--- NOTE | 2019-06-09 14:10 | Physical Therapy Daily Note ---
PT Daily Note-Current Subjective Patient agrees to PT. No c/o. Pain Numeric Pain Scale: 3 Location: Left Location Body Site: Knee Pain Description: Acute Mental Status Patient Orientation: Normal For Age Attachments: IV Transfers SCALE: Activities may be completed with or without assistive devices. 3-Aoxdahkldy-qpomfbb completes the activity by him/herself with no assistance from a helper. 5-Set-up or Clean-up Assistance-helper sets up or cleans up; patient completes activity. [place] assists only prior to or following the activity. 4-Supervision or Touching Assistance-helper provides verbal cues and/or touching/steadying and/or contact guard assistance as patient completes activity. Assistance may be provided throughout the activity or intermittently. 3-Partial/Moderate Assistance-helper does LESS THAN HALF the effort. [place] lifts, holds or supports trunk or limbs, but provides less than half the effort. 2-Substantial/Maximal Assistance-helper does MORE THAN HALF the effort. [place] lifts or holds trunk or limbs and provides more than half the effort. 9-Oydmyputw-qlroel does ALL the effort. Patient does none of the effort to compl ete the activity. Or, the assistance of 2 or more helpers is required for the patient to complete the activity. If activity was not attempted, code reason: 7-Patient Refused. 9-Not Applicable-not attempted and the patient did not perform the activity before the current illness, exacerbation or injury. 10-Not Attempted due to Environmental Limitations-(lack of equipment, weather restraints, etc.). 88-Not Attempted due to Medical Conditions or Safety Concerns. Transfers (B, C, W/C): 6 Roll Left to Right (QC): 6 Sit to Lying (QC): 6 Sit to Stand (QC): 6 Chair/Qki-td-Wsett Xfer(QC): 6 Bed to/from Chair: 6 Weight Bearing Left Lower Extremity: Left Weight Bearing/Tolerated Gait Training Does the Patient Walk?: Yes Distance: 250' Walk 10 feet (QC): 6 Walk 50 ft with 2 Turns(QC): 6 Walk 150 ft (QC): 6 Gait Assistive Device: FWW reciprocal pattern Exercises Supine Ex: Ankle pumps, Quad Set, Heel Slides, Straight leg raise Supine Reps: 15 Seated Therapy Exercises: Ankle pumps, Long arc quads Seated Reps: 20 Treatments CPM 0-70 degrees with polar pack in place Assessment Patient progressing with treatment plan. Continue to increase activity as tolerated. PT Snf Goals Snf Goals PT Steam Blocker Goals Time Frame: Jun 15, 2019 Sit to Lying (QC): 5 Lying-Sitting on Side/Bed(QC): 5 Sit to Stand (QC): 5 Roll Left to Right (QC): 5 Chair/Vey-se-Gsbyh Xfer(QC): 5 Distance: 50' Walk 10 feet (QC): 4 Walk 50ft with 2 Turns (QC): 4 Gait Assistive Device: FWW PT Plan Treatment/Plan Treatment Plan: Continue Plan of Care Treatment Plan: Bed Mobility, Education, Functional Activity Mai, Functional Strength, Gait, Safety, Therapeutic Exercise, Transfers Treatment Duration: Jun 15, 2019 Frequency: 11 times per week Estimated Hrs Per Day: .25 hour per day Patient and/or Family Agrees t: Yes Time/GCodes Time In: 1245 Time Out: 1310 Total Billed Treatment Time: 25 Total Billed Treatment 1 visit EX 14 min GT 11 min BJORN ESPANA PT Jun 09, 2019 14:10
[2019-06-09 17:55] VITALS: BP 110/75
[2019-06-09 19:30] VITALS: BP 109/73
[2019-06-10] VITALS (9 sets, daily range): BP systolic 96–128; BP diastolic 60–79
[2019-06-10] MEDS: NS IV 1000 ML 1,000 ML IV SCH (00:37)
[2019-06-10] MEDS: ONDANSETRON 4 MG/2 ML (SDV) Z0FRAN IVP PRN ×2 (03:58→08:00)
[2019-06-10] MEDS: MULTIVIT W/MINERALS TAB (THERAGRAN M) PO SCH (06:11)
--- NOTE | 2019-06-10 07:03 | Progress Note ---
Standard Progress Note Progress Notes/Assess & Plan Date Seen by a Provider: Jun 10, 2019 Time Seen by a Provider: 07:02 Progress/Assessment & Plan post op check no complaints radiographs--HW well positioned without fracture LLE-intact DF and PF of toes and ankle. sensation intact to light touch. 2 plus DP pulse with brisk cap refill s/p LTKA mobilize as able Final Diagnosis no complaints Vital Signs Date Time Temp Pulse Resp B/P (MAP) Pulse Ox O2 Delivery O2 Flow Rate FiO2 06/10/19 03:30 36.8 97 20 113/74 (87) 91 Room Air 06/10/19 00:40 108/60 (76) 06/10/19 00:30 37.1 101 20 96/62 (73) 91 Room Air 06/09/19 20:30 Room Air 06/09/19 20:05 20 06/09/19 19:30 36.8 98 20 109/73 (85) 96 Room Air 06/09/19 17:55 36.8 100 16 110/75 (87) 93 Room Air 06/09/19 12:05 36.7 100 20 115/67 (83) 95 Room Air 06/09/19 08:21 36.8 96 22 101/59 (73) 94 Room Air I & O 06/10/19 07:00 Intake Total 3040 ml Output Total 450 ml Balance 2590 ml LLE--incision clean and dry. No calf tenderness. Neg Van's s/p LTKA doing well DC later today STEFAN EVANS MD Jun 10, 2019 07:03
[2019-06-10] MEDS ORDERED: morphine INJ 4 MG/ML 1 ML (VIAL/SYRINGE) IVP PRN (07:15)
[2019-06-10 07:27] LABS: BASOPHILS % (AUTO) 0 % (0-10); EOSINOPHILS # (AUTO) 0.2 10^3/uL (0.0-0.3); EOSINOPHILS % (AUTO) 2 % (0-10); HEMATOCRIT 31 % (35-52); HEMOGLOBIN 9.8 G/DL (11.5-16.0); LYMPHOCYTES # (AUTO) 2.6 X 10^3 (1.0-4.0); LYMPHOCYTES % (AUTO) 26 % (12-44); MEAN CORPUSCULAR HEMOGLOBIN 31 PG (25-34); MEAN CORPUSCULAR HGB CONC 32 G/DL (32-36); MEAN CORPUSCULAR VOLUME 97 FL (80-99); MEAN PLATELET VOLUME 9.6 FL (7.4-10.4); MONOCYTES # (AUTO) 1.2 X 10^3 (0.0-1.0); MONOCYTES % (AUTO) 12 % (0-12); NEUTROPHILS # (AUTO) 5.7 X 10^3 (1.8-7.8); NEUTROPHILS % (AUTO) 59 % (42-75); PLATELET COUNT 210 10^3/uL (130-400); RED CELL DISTRIBUTION WIDTH 14.3 % (10.0-14.5); WHITE BLOOD COUNT 9.7 10^3/uL (4.3-11.0)
[2019-06-10 07:55] LABS: ALANINE AMINOTRANSFERASE 14 U/L (0-55); ALBUMIN 3.2 GM/DL (3.2-4.5); ALKALINE PHOSPHATASE 74 U/L (40-136); BILIRUBIN,TOTAL 0.5 MG/DL (0.1-1.0); BUN/CREATININE RATIO 14; CALCIUM 7.7 MG/DL (8.5-10.1); CARBON DIOXIDE 25 MMOL/L (21-32); CHLORIDE 104 MMOL/L (98-107); CREATININE SERUM 0.73 MG/DL (0.60-1.30); GFR ESTIMATED > 60; GLUCOSE 108 MG/DL (70-105); POTASSIUM 3.5 MMOL/L (3.6-5.0); SODIUM 136 MMOL/L (135-145); TOTAL PROTEIN 5.6 GM/DL (6.4-8.2)
[2019-06-10] MEDS: ASPIRIN E.C. 81 MG (ECOTRIN) TAB PO SCH (08:02)
[2019-06-10] MEDS: HYDROmorphone (DILAUDID) 2 MG TAB PO PRN ×2 (08:03→11:34)
[2019-06-10] MEDS: SENNA W/DOCUSATE (SENOKOT S) TABLET PO SCH (08:03)
[2019-06-10] MEDS: ENOXAPARIN 40 MG/0.4 ML (LOVENOX) SYR SC SCH (08:19)
--- NOTE | 2019-06-10 10:29 | Occupational Ther Daily Note ---
OT Current Status-Daily Note Subjective Pt seen supine in bed, states 10/10 pain due to CPM machine's use. Pt states she will continue CPM. Pt agreeable to OT tx session in bed. Mental Status/Objective Patient Orientation: Normal For Age ADL-Treatment Therapy Code Descriptions/Definitions Functional [place] Measure: 0=Not Assessed/NA 4=Minimal Assistance 1=Total Assistance 5=Supervision or Setup 2=Maximal Assistance 6=Modified [place] 3=Moderate Assistance 7=Complete IndependenceSCALE: Activities may be completed with or without assistive devices. 2-Vyavkbvciy-izihejm completes the activity by him/herself with no assistance from a helper. 5-Set-up or Clean-up Assistance-helper sets up or cleans up; patient completes activity. [place] assists only prior to or following the activity. 4-Supervision or Touching Assistance-helper provides verbal cues and/or touching/steadying and/or contact guard assistance as patient completes activity. Assistance may be provided throughout the activity or intermittently. 3-Partial/Moderate Assistance-helper does LESS THAN HALF the effort. [place] lifts, holds or supports trunk or limbs, but provides less than half the effort. 2-Substantial/Maximal Assistance-helper does MORE THAN HALF the effort. [place] lifts or holds trunk or limbs and provides more than half the effort. 0-Jmenejrri-xxjbvk does ALL the effort. Patient does none of the effort to complete the activity. Or, the assistance of 2 or more helpers is required for the patient to complete the activity. If activity was not attempted, code reason: 7-Patient Refused. 9-Not Applicable-not attempted and the patient did not perform the activity before the current illness, exacerbation or injury. 10-Not Attempted due to Environmental Limitations-(lack of equipment, weather restraints, etc.). 88-Not Attempted due to Medical Conditions or Safety Concerns. Other Treatment Pt denies getting dressed or utilizing bathroom. Pt desires to stay in bed due to pain and "just getting comforable." Pt completes grooming face/ underarms with wipes. Pt states she is in pain, diaphoramic and pursed lip breathing techniques taught to pt. Pt return-demonstrates. Pt given UE HEP with red theraband. Pt states and demonstrates understanding of HEP, completes 10 reps of first exercise. Pt educated on HH OT and/ or rehab process. Pt states family will be home to help her in/out of vehicle and in/out of bed. Pt states if no one is home she will use theraband to hike leg into bed. pt educated of safety concerns and use of either helper or leg geriatric case manager which can be purchased rather than theraband. Pt states understanding. Pt left in bed, call light in reach, CPM machine continues, all needs met. Education OT Patient Education: Correct positioning, Disease process, Exercise program, Home exercise program, Modified ADL techniques, Purpose of tx/functional activities, Reviewed precautions, Rehab process, Safety issues, Use of adapted e quipment Teaching Recipient: Patient Teaching Methods: Demonstration, Handout, Discussion Response to Teaching: Verbalize Understanding, Return Demonstration OT Short Term Goals Short Term Goals Upper Body Dressing(FIM): 6 Lower Body Dressing(FIM): 3 1=Demonstrate adherence to instructed precautions during ADL tasks. 2=Patient will verbalize/demonstrate understanding of assistive devices/modifications for ADL. 3=Patient will improve strength/tolerance for activity to enable patient to perform ADL's. OT Correction Goals Office Support Specialist Goals Eating (QC): 6 Oral Hygiene (QC): 6 Shower/Bathe Self (QC): 5 Upper Body Dressing (QC): 6 Lower Body Dressing (QC): 4 On/Off Footwear (QC): 5 Toileting Hygiene (QC): 6 Toilet/Commode Transfer (QC): 5 Additional Goals: 1-Demonstrate ADL Tasks, 2-Verbalize Understanding, 3- ImproveStrength/Mai 1=Demonstrate adherence to instructed precautions during ADL tasks. 2=Patient will verbalize/demonstrate understanding of assistive devices/modifications for ADL. 3=Patient will improve strength/tolerance for activity to enable patient to perform ADL's. OT Education/Plan Problem List/Assessment Assessment: Decreased Activ Tolerance, Decreased Safety Aware, Impaired Funct Balance, Impaired I ADL's, Impaired Self-Care Skills Discharge Recommendations Plan/Recommendations: Continue POC Therapy Discharge Recommendati: Intermittent Supervision, Post Acute OT Equpiment Recommendations-D/C: Other, See Comments Comment leg geriatric case manager Treatment Plan/Plan of Care Treatment,Training & Education: Yes Patient would benefit from OT for education, treatment and training to promote independence in ADL's, mobility, safety and/or upper extremity function for ADL's. Plan of Care: ADL Retraining, Functional Mobility, Group Exercise/Act as Ind, Orthotic Fitting/Training, UE Funct Exercise/Act Treatment Duration: Jun 16, 2019 Frequency: 5 times per week Estimated Hrs Per Day: .25 hour per day Agreement: Yes Rehab Potential: Fair Time/GCodes Start Time: 10:09 Stop Time: 10:21 Total Time Billed (hr/min): 12 Billed Treatment Time 1 FA (12) LOCO MCCLENDON OTR Jun 10, 2019 10:29
--- NOTE | 2019-06-10 11:24 | Progress Note - Hospitalist ---
Subjective HPI/CC On Admission Date Seen by Provider: Jun 10, 2019 Time Seen by Provider: 09:00 Chief complaint: s/p left knee replacement per Dr. Woods POD # 1 in need of medical management HPI: This is a 53yo[facility] [address] Harris at [facility] who is s/p uncomplicated left knee replacement by dr. Woods, POD# 1. Currently she reports that the pain is improved. Overall having no SOB, or chest pain. I did review labs, potassium was 3.[address] on supplement but otherwise she denies any other significant problems. I checked meds and labs and medical history. Subjective/Events-last exam Pt will likely go home today. Pain is reported but will get pain medication for her. Bowels not yet moving but taking stool softeners and will continue to do so at home. Labs reviewed everything is normal. Review of Systems General: Fatigue Objective Exam Vital Signs Vital Signs Date Time Temp Pulse Resp B/P (MAP) Pulse Ox O2 Delivery O2 Flow Rate FiO2 06/10/19 16:50 37.6 88 18 120/70 95 Room Air 2.00 Capillary Refill : Less Than 3 Seconds General Appearance: No Apparent Distress, WD/WN Respiratory: Chest Non Tender, Lungs Clear, Normal Breath Sounds, No Accessory Muscle Use, No Respiratory Distress Cardiovascular: Regular Rate, Rhythm, No Edema, No Gallop, No JVD, No Murmur, Normal Peripheral Pulses Neurologic/Psychiatric: Alert, Oriented x3, No Motor/Sensory Deficits, Normal Mood/Affect Results/Procedures Lab Laboratory Tests 06/10/19 07:20 Patient resulted labs reviewed. Assessment/Plan Assessment and Plan Assess & Plan/Chief Complaint Assessment: s/p RTKA POD # 2 DJD of spine Hypokalemia Plan: Monitor BP Home meds BM regimen Diagnosis/Problems Diagnosis/Problems (1) Osteoarthritis of left knee Status: Chronic Qualifiers: Osteoarthritis type: primary Qualified Codes: M17.12 - Unilateral primary osteoarthritis, left knee Clinical Quality Measures DVT/VTE Risk/Contraindication: Risk Factor Score Per Nursin RFS Level Per Nursing on Admit: 4+=Very High TRACIE MONTGOMERY DO Jun 10, 2019 11:23
--- NOTE | 2019-06-10 11:38 | Physical Therapy Daily Note ---
PT Daily Note-Current Subjective Patient agrees to PT. Pain Numeric Pain Scale: 10-Worst Possible Pain Location: Left Location Body Site: Knee Pain Description: Acute Mental Status Patient Orientation: Normal For Age Transfers SCALE: Activities may be completed with or without assistive devices. 4-Jitgypqyxb-zfqceci completes the activity by him/herself with no assistance from a helper. 5-Set-up or Clean-up Assistance-helper sets up or cleans up; patient completes activity. [place] assists only prior to or following the activity. 4-Supervision or Touching Assistance-helper provides verbal cues and/or touching/steadying and/or contact guard assistance as patient completes activity. Assistance may be provided throughout the activity or intermittently. 3-Partial/Moderate Assistance-helper does LESS THAN HALF the effort. [place] lifts, holds or supports trunk or limbs, but provides less than half the effort. 2-Substantial/Maximal Assistance-helper does MORE THAN HALF the effort. [place] lifts or holds trunk or limbs and provides more than half the effort. 9-Idcogommv-oifkwk does ALL the effort. Patient does none of the effort to complete the activity. Or, the assistance of 2 or more helpers is required for the patient to complete the activity. If activity was not attempted, code reason: 7-Patient Refused. 9-Not Applicable-not attempted and the patient did not perform the activity before the current illness, exacerbation or injury. 10-Not Attempted due to Environmental Limitations-(lack of equipment, weather restraints, etc.). 88-Not Attempted due to Medical Conditions or Safety Concerns. Roll Left to Right (QC): 6 Sit to Lying (QC): 6 Sit to Stand (QC): 6 Chair/Djr-oj-Sywlx Xfer(QC): 6 Bed to/from Chair: 6 Weight Bearing Left Lower Extremity: Left Weight Bearing/Tolerated Gait Training Does the Patient Walk?: Yes Distance: 250' Walk 10 feet (QC): 6 Walk 50 ft with 2 Turns(QC): 6 Walk 150 ft (QC): 6 Gait Assistive Device: FWW slow, reciprocal pattern Exercises Supine Ex: Ankle pumps, Quad Set, Heel Slides, Straight leg raise Supine Reps: 15 Seated Therapy Exercises: Long arc quads Seated Reps: 15 Treatments CPM 0-70 degrees with polar pack after treatment. Assessment Current Status: Excellent Progress PT Stage Director Goals Senior Living Goals PT Stage Director Goals Time Frame: Jun 15, 2019 Sit to Lying (QC): 5 Lying-Sitting on Side/Bed(QC): 5 Sit to Stand (QC): 5 Roll Left to Right (QC): 5 Chair/Ads-ih-Ktqci Xfer(QC): 5 Distance: 50' Walk 10 feet (QC): 4 Walk 50ft with 2 Turns (QC): 4 Gait Assistive Device: FWW PT Plan Treatment/Plan Treatment Plan: Continue Plan of Care Treatment Plan: Bed Mobility, Education, Functional Activity Mai, Functional Strength, Gait, Safety, Therapeutic Exercise, Transfers Treatment Duration: Jun 15, 2019 Frequency: 11 times per week Estimated Hrs Per Day: .25 hour per day Patient and/or Family Agrees t: Yes Time/GCodes Time In: 920 Time Out: 943 Total Billed Treatment Time: 23 Total Billed Treatment 1 visit EX 13 min GT 10 min BJORN ESPANA PT Jun 10, 2019 11:38
--- NOTE | 2019-06-10 11:43 | NUR ---
CM/SS responded to consult for SS. Discussed discharge planning with the patient, she would prefer to have outpatient PT instead of HHC. There was PT order on chart and information was faxed to [facility] in [facility] at the patient's request. Patient was in need of a FWW. Patient preference of DME for FWW was [facility]. Order and necessary information for FWW was faxed to [facility] and they will deliver to patient's room this day.
--- NOTE | 2019-06-10 11:44 | NUR ---
DC'D PATIENT CARE COORDINATOR MORPHINE. 58 CC MORPHINE SULFATE WASTED WITH ANA NGUYEN.
--- NOTE | 2019-06-10 11:57 | NUR ---
IRF Evaluation Order received to evaluate patient for the ARU. Chart review complete and it appears patient is ambulating (250ft, FWW) and transferring with modified independence; therefore, patient does not require intensive therapies, at this time. Thank you for this referral.
--- NOTE | 2019-06-10 14:15 | DISCHARGE SUMMARY ---
DATE OF SERVICE: DIAGNOSES: 1. Left knee primary osteoarthritis. 2. Anxiety disorder. PROCEDURE: Left total knee arthroplasty. SUMMARY: The patient is a 53-year-old female who underwent left total knee arthroplasty on the day of admission. Postoperatively, she did well. At the time of discharge, her wound was clean and dry. She had no calf tenderness. Negative Homans sign. She was tolerating diet well and tolerating pain with oral pain medication. CONDITION AT DISCHARGE: Good. DISCHARGE DIET: Regular. FOLLOWUP: Follow up is in three weeks. Home physical therapy has been arranged. DISCHARGE MEDICATIONS: Home medications, Dilaudid as needed for pain and coated aspirin. Job ID: [id number] DocumentID: [id number] Dictated Date: 06/09/2019 18:38:19 [employer] Date: 06/10/2019 14:15:14 Dictated By: STEFAN EVANS MD
--- NOTE | 2019-06-10 14:52 | Physical Therapy Daily Note ---
PT Daily Note-Current Subjective Patient is very anxious and reluctantly agrees to PT. Pain Numeric Pain Scale: 10-Worst Possible Pain Location: Left Location Body Site: Knee Pain Description: Acute Mental Status Patient Orientation: Normal For Age Transfers SCALE: Activities may be completed with or without assistive devices. 5-Lbfrfexnuo-iewrrfc completes the activity by him/herself with no assistance from a helper. 5-Set-up or Clean-up Assistance-helper sets up or cleans up; patient completes activity. [place] assists only prior to or following the activity. 4-Supervision or Touching Assistance-helper provides verbal cues and/or touching/steadying and/or contact guard assistance as patient completes activity. Assistance may be provided throughout the activity or intermittently. 3-Partial/Moderate Assistance-helper does LESS THAN HALF the effort. [place] lifts, holds or supports trunk or limbs, but provides less than half the effort. 2-Substantial/Maximal Assistance-helper does MORE THAN HALF the effort. [place] lifts or holds trunk or limbs and provides more than half the effort. 3-Dqcugtcvt-tzbdiv does ALL the effort. Patient does none of the effort to complete the activity. Or, the assistance of 2 or more helpers is required for the patient to complete the activity. If activity was not attempted, code reason: 7-Patient Refused. 9-Not Applicable-not attempted and the patient did not perform the activity before the current illness, exacerbation or injury. 10-Not Attempted due to Environmental Limitations-(lack of equipment, weather restraints, etc.). 88-Not Attempted due to Medical Conditions or Safety Concerns. Transfers (B, C, W/C): 6 Roll Left to Right (QC): 6 Sit to Lying (QC): 6 Sit to Stand (QC): 6 Chair/Swm-gy-Buzxo Xfer(QC): 6 Bed to/from Chair: 6 Weight Bearing Left Lower Extremity: Left Weight Bearing/Tolerated Gait Training Does the Patient Walk?: Yes Distance: 275' Walk 10 feet (QC): 6 Walk 50 ft with 2 Turns(QC): 6 Walk 150 ft (QC): 6 Stair Training patient declined Exercises Supine Ex: Ankle pumps, Quad Set, Heel Slides, Straight leg raise Supine Reps: 15 Seated Therapy Exercises: Ankle pumps, Long arc quads Seated Reps: 15 Assessment Patient improved with treatment plan and will dismiss on this date to home with HEP issued prior to surgery. PT instructed patient to perform exercises 3/daily to ensure recovery and full benefit of elective surgery. PT Intermediate Goals Intermediate Goals PT Intermediate Goals Time Frame: Jun 15, 2019 Sit to Lying (QC): 5 Lying-Sitting on Side/Bed(QC): 5 Sit to Stand (QC): 5 Roll Left to Right (QC): 5 Chair/Tpt-qh-Zzzxm Xfer(QC): 5 Distance: 50' Walk 10 feet (QC): 4 Walk 50ft with 2 Turns (QC): 4 Gait Assistive Device: FWW PT Plan Treatment/Plan Treatment Plan: Discontinue PT, goals met Treatment Plan: Bed Mobility, Education, Functional Activity Mai, Functional Strength, Gait, Safety, Therapeutic Exercise, Transfers Treatment Duration: Jun 15, 2019 Frequency: 11 times per week Estimated Hrs Per Day: .25 hour per day Patient and/or Family Agrees t: Yes Time/GCodes Time In: 1355 Time Out: 1414 Total Billed Treatment Time: 19 Total Billed Treatment 1 visit FA 19 min BJORN ESPANA PT Jun 10, 2019 14:52
--- NOTE | 2019-06-10 16:50 | NUR ---
MARISOL ORTIZ demonstrates understanding of discharge instructions and accurately returns instructions upon questioning. Copy of Post-Discharge Instructions given to PT. MARISOL ORTIZ is able to manage continuing needs after discharge WITH HOME HEALTH CARE. Patients belongings returned to PT. Patient discharged from [facility] on 06/10/19 at 1650. MARISOL ORTIZ left floor via W/C, accompanied by STAFF AND DAUGHTER PER AUTO.
== END 2019-06-10 16:50 | disposition home or self-care (01) | DRG 470 ==
LOC: 4TH 07:23 → SURG 07:24 → 4TH 12:50
PROVIDERS: ADMIT Orthopaedic Surgery; ATTEND Orthopaedic Surgery
PROC: 0SRD0J9 Replacement of Left Knee Joint with Synthetic Substitute, Cemented, Open Approach (ICD-10-PCS; principal; 2019-06-08 09:43)
DX: M17.12 Unilateral primary osteoarthritis, left knee (principal); M06.9 Rheumatoid arthritis, unspecified; E66.01 Morbid (severe) obesity due to excess calories; Z68.42 Body mass index [BMI] 45.0-49.9, adult; F41.9 Anxiety disorder, unspecified; G62.9 Polyneuropathy, unspecified; J30.2 Other seasonal allergic rhinitis
CPT/HCPCS: 36415; 73560; 80053; 85025; 86850; 86900; 86901; 94664; 94760

== ENCOUNTER 2019-07-12 17:03 | Emergency (ER) | payer MEDICAID ==
[~2019-07-12] VITALS: Ht 165 cm; Wt 113.0 kg
[~2019-07-12 17:03] MED LIST changes: +OXYC1TAB87 PO
--- NOTE | 2019-07-12 17:25 | ED Lower Extremity ---
General Chief Complaint: Lower Extremity Stated Complaint: KNEE PAIN Source: patient Exam Limitations: no limitations History of Present Illness Date Seen by Provider: Jul 12, 2019 Time Seen by Provider: 17:15 Initial Comments The patient is a pleasant 53-year-old female who presents for evaluation of a possible infection to the left knee. She states that she had a knee replacement about a month ago on the left side. Today her daughter noticed that there was a small white spot which appeared to be a pimple near her incision on the left knee. The patient had not noticed that and had not noticed any pain or discomfort. She pushed on it and a very small amount of pus came out of the pimple like lesion. The patient denies any fevers or chills, knee pain, limitation of range of motion, pain with walking, or any other complaints. She states that she feels completely normal and that her knee feels normal. She did not contact her orthopedic surgeon. Onset: this morning Pain/Injury Location: left knee Allergies and Home Medications Allergies Coded Allergies: acetaminophen (Verified Allergy, Unknown, ITCH ALL OVER, 11/19/15) diphenhydramine (Verified Allergy, Unknown, EYES SWELL , 11/19/15) ibuprofen (Verified Allergy, Unknown, EYES SWELL, 11/19/15) naproxen (Verified Allergy, Unknown, EYE SWELLS, 11/19/15) sulfamethoxazole (Verified Allergy, Unknown, Itching, 06/06/19) trimethoprim (Verified Allergy, Unknown, Itching, 06/06/19) Home Medications Cetirizine HCl/Pseudoephedrine 1 Each Tab.er.12h, 1 TAB PO BID, (Reported) Folic Acid 1 Mg Tablet, 1 MG PO SuMoTuThFrSa, (Reported) DOES NOT TAKE ON DAYS SHE TAKES METHOTREXATE Gabapentin 800 Mg Tablet, 800 MG PO TID, (Reported) Methotrexate Sodium 2.5 Mg Tablet, 15 MG PO We, (Reported) TAKES 6 (2.5MG) TABLETS Oxycodone HCl/Acetaminophen 1 Each Tablet, 1 TAB PO Q4H Prescribed by: STEFAN EVANS on 06/08/19 0737 Patient Home Medication List Home Medication List Reviewed: Yes Review of Systems Constitutional: no symptoms reported EENTM: no symptoms reported Respiratory: no symptoms reported Cardiovascular: no symptoms reported Gastrointestinal: no symptoms reported Genitourinary: no symptoms reported Musculoskeletal: no symptoms reported Skin: other (small pustule on the left knee) Psychiatric/Neurological: No Symptoms Reported All Other Systems Reviewed Negative Unless Noted: Yes Past Qzdabfl-Dajned-Jdwydn Hx Past Med/Social Hx: Reviewed Nursing Past Med/Soc Hx Patient Social History Recent Foreign Travel: No Contact w/Someone Who Travel: No Recent Hopitalizations: No Immunizations Up To Date Date of Pneumonia Vaccine: May 04, 2019 Date of Influenza Vaccine: May 02, 2019 Seasonal Allergies Seasonal Allergies: Yes Past Medical History Surgeries: Yes (RIGHT RCR, RIGHT CTR, LEFT CTR, spine sx x2) Orthopedic Respiratory: No Cardiac: No Neurological: Yes Neuropathy Genitourinary: No Gastrointestinal: Yes Diverticulosis Musculoskeletal: Yes (STENOSIS) Arthritis, Chronic Back Pain Endocrine: No HEENT: No Cancer: No Psychosocial: No Integumentary: No Blood Disorders: No Family Medical History Arthritis G8 SISTER Cardiovascular disease 19 FATHER Diabetes mellitus G8 SISTER Dysphasia 19 MOTHER Respiratory disorder 19 FATHER (lung cancer) 19 MOTHER (lung ca) Physical Exam Vital Signs Capillary Refill : Height, Weight, BMI Height: 5'2.00" Weight: 297lbs. 1.0oz. 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 She will also go home with a prescription for Keflex for a few days and has been encouraged to discuss this with her orthopedic surgeon. Advised return to the emergency Department immediately for new or worsening symptoms. The patient expresses verbal understanding and agreement and is stable for discharge. Departure Impression Primary Impression: Skin pustule Disposition: 01 HOME, SELF-CARE Condition: Stable Departure-Patient Inst. Decision time for Depature: 17:28 Referrals: MARCOS HAINES MD (PCP/Family) Primary Care Physician Patient Instructions: Wound Infection Add. Discharge Instructions: As discussed, there is no indication of an infection of her surgical wound. Apply a topical antibiotic such as Neosporin to wear he saw the pustule daily for the next 3 days. Take the prescribed antibiotic as directed. Return to the Emergency Department immediately for new or worsening symptoms. Scripts Cephalexin (Keflex) 500 Mg Capsule 500 MG PO BID for 5 Days, #10 CAP Prov: XU ESTEBAN DO 07/12/19 XU ESTEBAN DO Jul 12, 2019 17:25 POS
[2019-07-12] MEDS ORDERED: CEPH-507 PO (17:28)
[2019-07-12 17:36] VITALS: BP 160/90
== END 2019-07-12 17:37 | disposition home or self-care (01) ==
LOC: EDUNIT# 17:03 → ER FS 17:04
DX: L08.9 Local infection of the skin and subcutaneous tissue, unspecified (principal); G62.9 Polyneuropathy, unspecified; Z96.652 Presence of left artificial knee joint; Z88.6 Allergy status to analgesic agent; Z88.2 Allergy status to sulfonamides; Z88.1 Allergy status to other antibiotic agents; Z88.8 Allergy status to other drugs, medicaments and biological substances; Z82.49 Family history of ischemic heart disease and other diseases of the circulatory system; Z80.1 Family history of malignant neoplasm of trachea, bronchus and lung
CPT/HCPCS: 99283

== ENCOUNTER 2019-10-19 05:47 | Outpatient (CLI) | payer MEDICAID ==
[~2019-10-19] VITALS: Ht 157 cm; Wt 101.2 kg
[~2019-10-19 05:47] MED LIST changes: +CEPH-507 PO
[2019-10-19 14:21] LABS: BILIRUBIN,URINE NEGATIVE (NEGATIVE); CLARITY,URINE CLEAR; COLOR,URINE YELLOW; GLUCOSE, URINE (UA) NEGATIVE (NEGATIVE); KETONES,URINE NEGATIVE (NEGATIVE); LEUKOCYTE ESTERASE ,URINE NEGATIVE (NEGATIVE); NITRITE,URINE NEGATIVE (NEGATIVE); PROTEIN,URINE NEGATIVE (NEGATIVE)
[2019-10-19 14:21] LABS: BASOPHILS % (AUTO) 0 % (0-10); EOSINOPHILS # (AUTO) 0.2 10^3/uL (0.0-0.3); EOSINOPHILS % (AUTO) 2 % (0-10); HEMATOCRIT 39 % (35-52); HEMOGLOBIN 12.6 G/DL (11.5-16.0); LYMPHOCYTES # (AUTO) 2.4 X 10^3 (1.0-4.0); LYMPHOCYTES % (AUTO) 27 % (12-44); MEAN CORPUSCULAR HEMOGLOBIN 29 PG (25-34); MEAN CORPUSCULAR HGB CONC 32 G/DL (32-36); MEAN CORPUSCULAR VOLUME 91 FL (80-99); MEAN PLATELET VOLUME 9.5 FL (7.4-10.4); MONOCYTES # (AUTO) 0.7 X 10^3 (0.0-1.0); MONOCYTES % (AUTO) 8 % (0-12); NEUTROPHILS # (AUTO) 5.4 X 10^3 (1.8-7.8); NEUTROPHILS % (AUTO) 62 % (42-75); PLATELET COUNT 314 10^3/uL (130-400); WHITE BLOOD COUNT 8.7 10^3/uL (4.3-11.0)
[2019-10-19 14:29] LABS: BACTERIA,URINE FEW /HPF
[2019-10-19 14:36] LABS: INR 0.9 (0.8-1.4); PROTHROMBIN TIME PATIENT 12.9 SEC (12.2-14.7)
[2019-10-19 14:42] LABS: ERYTHROCYTE SEDIMENTATION RATE 21 MM/HR (0-30)
[2019-10-19 14:47] LABS: ALANINE AMINOTRANSFERASE 11 U/L (0-55); ALBUMIN 3.8 GM/DL (3.2-4.5); ALKALINE PHOSPHATASE 100 U/L (40-136); BILIRUBIN,TOTAL 0.4 MG/DL (0.1-1.0); BUN/CREATININE RATIO 14; CALCIUM 9.2 MG/DL (8.5-10.1); CARBON DIOXIDE 25 MMOL/L (21-32); CHLORIDE 103 MMOL/L (98-107); GFR ESTIMATED > 60; GLUCOSE 98 MG/DL (70-105); POTASSIUM 4.1 MMOL/L (3.6-5.0); SODIUM 138 MMOL/L (135-145); TOTAL PROTEIN 7.1 GM/DL (6.4-8.2)
== END 2019-10-19 15:08 ==
LOC: PREOP 05:47
PROVIDERS: ATTEND Orthopaedic Surgery
DX: Z01.812 Encounter for preprocedural laboratory examination (principal); Z11.2 Encounter for screening for other bacterial diseases; M17.11 Unilateral primary osteoarthritis, right knee; R53.83 Other fatigue
CPT/HCPCS: 36415; 80053; 81000; 85025; 85610; 85652; 86850; 86900; 86901; 87081

== ENCOUNTER → 2020-02-09 | Outpatient (CLI) | payer MEDICAID ==
[~2020-02-09] MED LIST changes: -CETI10TA20 PO; +CETI10TA21 PO
--- NOTE | 2020-02-09 14:00 | Diagnostic Imaging Report ---
INDICATION: Lower back pain. COMPARISON: None. FINDINGS: Frontal and lateral radiographic views of the lumbar spine were obtained. Evaluation of the static alignment demonstrates grade 2 anterolisthesis at L3-L4. There are no jumped facets. Vertebral body heights are maintained. There is no evidence of acute fracture. Moderate multilevel degenerative changes are noted and consistent with intervertebral disc height loss with endplate osteophyte formations. These changes appear greatest at the L3-L4 and L4-L5 levels. No unexpected radiopaque foreign bodies are seen. IMPRESSION: 1. No acute fracture or dislocation of the lumbar spine. 2. Grade 2 anterolisthesis at L3-L4 with moderate degenerative changes of the lower lumbar spine. Dictated by: Dictated on workstation # [id number]
== END ==
LOC: RAD FS 10:48
PROVIDERS: ATTEND Nurse Practitioner
DX: M47.816 Spondylosis without myelopathy or radiculopathy, lumbar region (principal); M43.16 Spondylolisthesis, lumbar region
CPT/HCPCS: 72100

== ENCOUNTER → 2020-03-22 | Outpatient (CLI) | payer MEDICAID ==
--- NOTE | 2020-03-22 10:06 | Diagnostic Imaging Report ---
INDICATION: Low back pain and right hip pain. TIME OF EXAM: 10 00 a.m. 2 views of the right hip were obtained. Femoral acetabular alignment is normal. Joint spaces fairly well maintained. There is some spurring along the superior lateral aspect of acetabulum. Femoral head and neck appear to be intact. No fractures are seen. Right-sided rami are intact. IMPRESSION: No acute bony abnormality is detected. Dictated by: Dictated on workstation # [id number]
== END ==
LOC: RAD FS 09:50
PROVIDERS: ATTEND Nurse Practitioner
DX: M25.551 Pain in right hip (principal); M54.5 Low back pain
CPT/HCPCS: 73502

== ENCOUNTER → 2020-04-02 | Outpatient (CLI) | payer MEDICAID ==
--- NOTE | 2020-04-02 09:40 | Diagnostic Imaging Report ---
PROCEDURE: MRI lumbar spine. TECHNIQUE: Multiplanar, multisequence MRI of the lumbar spine was performed without contrast. INDICATION: Low back pain. Right hip pain. Right leg numbness. COMPARISON: None FINDINGS: For the purposes of this exam, last well-formed disc space is noted at the L5-S1 level. Evaluation of static alignment shows slight grade 1 anterolisthesis at L3-L4 and L4-L5. There is no evidence of jumped facets. Note is also made of mild dextroscoliotic deformity epicentered at the L2-L3 level. Vertebral body heights are maintained. There is no acute fracture. Mild Modic type I changes noted involving the adjacent endplates at L5-S1. There is also multilevel intervertebral disc height loss greatest at the L3-L4 level. Visualized portions of distal cord are unremarkable. Conus terminates at approximately the L1 level. No abnormal intrathecal filling defects are seen. Pre and paravertebral soft tissue structures are unremarkable. Axial images demonstrate the following: T12-L1 through L2-L3: There is mild bilateral ligamentous laxity and facet arthropathy, but no large disc bulge or focal protrusion. There is no significant spinal canal or neuroforaminal stenosis. L3-L4: There is mild anterolisthesis likely secondary to bilateral L3 pars defects. There is unroofing of the disc with broad-based posterior disc bulge and bilateral facet arthropathy. As result, there is mild narrowing of the spinal canal and moderate to severe stenosis of the left neuroforamen. There is also moderate stenosis on the right. L4-L5: There is central disc protrusion superimposed on broad-based posterior disc bulge. There also appears to be early migration of disc material superiorly within the anterior epidural space. There is also bilateral facet arthropathy. As result, there is moderate spinal canal stenosis and mild to moderate stenosis of the right neural foramen. Mild narrowing of the left neuroforamen is also noted. L5-S1: There is asymmetric right lateral endplate osteophyte formation. There is otherwise only small broad-based posterior disc bulge and bilateral facet arthropathy. There is no significant spinal canal stenosis. There is mild narrowing of bilateral neural foramen. IMPRESSION: 1. Multilevel degenerative changes of lumbar spine, greatest at L3-L4 and L4-L5 levels. 2. No acute fracture or dislocation. Dictated by: Dictated on workstation # [id number]
== END ==
LOC: RAD 08:37
PROVIDERS: ATTEND Physician Assistant
DX: M47.26 Other spondylosis with radiculopathy, lumbar region (principal); M48.061 Spinal stenosis, lumbar region without neurogenic claudication
CPT/HCPCS: 72148

== ENCOUNTER 2020-07-06 09:29 | Observation (INO) | payer MEDICAID ==
[~2020-07-06] VITALS: Ht 157.4 cm; Wt 111.0 kg
[~2020-07-06 09:29] MED LIST changes: -CETI10TA21 PO; +CETI10TA49 PO
[2020-07-06] MEDS ORDERED: NALOXONE 0.4 MG/ML 1 ML (NARCAN) VIAL ONE (09:35)
--- NOTE | 2020-07-06 09:38 | ED General ---
General Stated Complaint: FALL Source of Information: Patient, EMS, EMS Notes Reviewed, RN/MD, RN Notes Reviewed Exam Limitations: Intoxication History of Present Illness Date Seen by Provider: Jul 06, 2020 Time Seen by Provider: 09:30 Initial Comments This patient is a 54-year-old female presents to the emergency department with complaint of a fall. Patient recently had back surgery. Patient was unable to get up on the floor. Patient appears to be medicated awake and alert but does not answer questions appropriately. Concerning the patient might be overmedicated. We will give patient 0.4 Narcan evaluate treat further as needed. Patient otherwise has no complaints. Associated Systoms: Denies Symptoms Allergies and Home Medications Allergies Coded Allergies: diphenhydramine (Verified Allergy, Severe, EYES SWELL , 10/19/19) ibuprofen (Verified Allergy, Severe, EYES SWELL, 10/19/19) naproxen (Verified Allergy, Severe, EYE SWELLS, 10/19/19) acetaminophen (Verified Allergy, Mild, ITCH ALL OVER, 10/27/19) PT HAS TAKEN PERCOCET BEFORE sulfamethoxazole (Verified Allergy, Mild, Itching, 10/19/19) trimethoprim (Verified Allergy, Mild, Itching, 10/19/19) Home Medications Cetirizine HCl/Pseudoephedrine 1 Each Tab.er.12h, 1 TAB PO BID, (Reported) Folic Acid 1 Mg Tablet, 1 MG PO SuMoTuThFrSa, (Reported) DOES NOT TAKE ON DAYS SHE TAKES METHOTREXATE Gabapentin 800 Mg Tablet, 800 MG PO TID, (Reported) Methotrexate Sodium 2.5 Mg Tablet, 15 MG PO We, (Reported) TAKES 6 (2.5MG) TABLETS Oxycodone HCl/Acetaminophen 1 Each Tablet, 1 TAB PO Q4H Prescribed by: STEFAN EVANS on 06/08/19 0737 Patient Home Medication List Home Medication List Reviewed: Yes Review of Systems Review of Systems Constitutional: No no symptoms reported, No see HPI, No chills, No diaphoresis, No dizziness, No fever, No malaise; weakness; No weight gain, No weight loss, No other EENTM: No see HPI, No no symptoms reported, No ear discharge, No hearing loss, No ear pain, No blurred vision, No double vision, No eye pain, No tearing, No v ision loss, No dental problems, No hoarseness, No mouth pain, No mouth swelling, No epistaxis, No nose congestion, No nose pain, No throat pain, No throat swelling, No other Respiratory: No no symptoms reported, No see HPI, No cough, No dyspnea on exertion, No hemoptysis, No orthopnea, No phlegm, No short of breath, No stridor, No wheezing, No other Cardiovascular: No no symptoms reported, No see HPI, No chest pain, No edema, No Hx of Intervention, No palpitations, No syncope, No vascular heart diseas, No other Gastrointestinal: No RUQ, No LUQ, No RLQ, No LLQ, No no symptoms reported, No see HPI, No abdominal pain, No constipation, No diarrhea, No dysphagia, No hematemesis, No heartburn, No jaundice, No loss of appetite, No melena, No nausea, No vomiting, No other Musculoskeletal: No no symptoms reported, No see HPI; back pain; No gout, No joint pain, No joint swelling, No muscle pain, No muscle stiffness, No muscle cramps, No muscle twitching, No muscle weakness, No neck pain, No other Skin: No no symptoms reported, No see HPI, No change in color, No change in hair/nails, No dryness, No hx of skin cancer, No lesions, No lumps, No pruritus, No rash, No other All Other Systems Reviewed Negative Unless Noted: Yes Past Cxhgyfq-Upyogg-Pcpzeu Hx Patient Social History 2nd Hand Smoke Exposure: No Recent Hopitalizations: No Immunizations Up To Date Date of Pneumonia Vaccine: Jun 07, 2018 Date of Influenza Vaccine: Oct 11, 2019 Seasonal Allergies Seasonal Allergies: No Past Medical History Surgeries: Yes (L TKR, ROTATOR CUFF, SPINAL, BILAT CTR) Joint Replacement, Orthopedic Respiratory: No Cardiac: No Neurological: No Neuropathy Genitourinary: No Gastrointestinal: No Diverticulosis Musculoskeletal: No Arthritis, Chronic Back Pain Endocrine: No HEENT: No Cancer: No Psychosocial: No Integumentary: No Blood Disorders: No Family Medical History Arthritis G8 SISTER Cardiovascular disease 19 FATHER Diabetes mellitus G8 SISTER Dysphasia 19 MOTHER Respiratory disorder 19 FATHER (lung cancer) 19 MOTHER (lung ca) Physical Exam Vital Signs Vital Signs - First Documented 07/06/20 10:09 Temp 36.9 Pulse 75 Resp 16 B/P (MAP) 148/91 (110) Pulse Ox 91 O2 Delivery Room Air Capillary Refill : Height, Weight, BMI Height: 5'2.00" Weight: 297lbs. 1.0oz. [id number]; 41.05 BMI Method: General Appearance: No Apparent Distress, WD/WN, Other (patient appears to be overly medicated.) HEENT: PERRL/EOMI, TMs Normal, Normal ENT Inspection, Pharynx Normal Respiratory: Chest Non Tender, Lungs Clear, Normal Breath Sounds, No Accessory Muscle Use, No Respiratory Distress Cardiovascular: Regular Rate, Rhythm, No Edema, No Gallop, No JVD, No Murmur, Normal Peripheral Pulses Neurologic/Psychiatric: Alert, No Motor/Sensory Deficits, Normal Mood/Affect Skin: Normal Color, Warm/Dry Progress/Results/Core Measures Suspected Sepsis SIRS Temperature: Pulse: Respiratory Rate: Laboratory Tests 07/06/20 09:45: White Blood Count 11.0 Blood Pressure / Mean: Laboratory Tests 07/06/20 09:45: Creatinine 1.12, Platelet Count 419H, Total Bilirubin 0.3 Results/Orders Lab Results Laboratory Tests Test 07/06/20 09:45 07/06/20 10:10 Range/Units White Blood Count 11.0 4.3-11.0 10^3/uL Red Blood Count 3.65 L 4.35-5.85 10^6/uL Hemoglobin 11.4 L 11.5-16.0 G/DL Hematocrit 35 35-52 % Mean Corpuscular Volume 95 80-99 FL Mean Corpuscular Hemoglobin 31 25-34 PG Mean Corpuscular Hemoglobin Concent 33 32-36 G/DL Red Cell Distribution Width 13.2 10.0-14.5 % Platelet Count 419 H 130-400 10^3/uL Mean Platelet Volume 9.0 7.4-10.4 FL Immature Granulocyte % (Auto) 1 % Neutrophils (%) (Auto) 69 42-75 % Lymphocytes (%) (Auto) 23 12-44 % Monocytes (%) (Auto) 5 0-12 % Eosinophils (%) (Auto) 2 0-10 % Basophils (%) (Auto) 1 0-10 % Neutrophils # (Auto) 7.6 1.8-7.8 X 10^3 Lymphocytes # (Auto) 2.6 1.0-4.0 X 10^3 Monocytes # (Auto) 0.6 0.0-1.0 X 10^3 Eosinophils # (Auto) 0.2 0.0-0.3 10^3/uL Basophils # (Auto) 0.1 0.0-0.1 10^3/uL Immature Granulocyte # (Auto) 0.1 0.0-0.1 10^3/uL Sodium Level 142 135-145 MMOL/L Potassium Level 3.7 3.6-5.0 MMOL/L Chloride Level 101 98-107 MMOL/L Carbon Dioxide Level 27 21-32 MMOL/L Anion Gap 14 5-14 MMOL/L Blood Urea Nitrogen 10 7-18 MG/DL Creatinine 1.12 0.60-1.30 MG/DL Estimat Glomerular Filtration Rate 50 BUN/Creatinine Ratio 9 Glucose Level 156 H 70-105 MG/DL Calcium Level 8.8 8.5-10.1 MG/DL Corrected Calcium 9.2 8.5-10.1 MG/DL Total Bilirubin 0.3 0.1-1.0 MG/DL Aspartate Amino Transf (AST/SGOT) 13 5-34 U/L Alanine Aminotransferase (ALT/SGPT) 9 0-55 U/L Alkaline Phosphatase 79 40-136 U/L Total Protein 6.4 6.4-8.2 GM/DL Albumin 3.5 3.2-4.5 GM/DL Urine Color YELLOW Urine Clarity CLEAR Urine pH 6.5 5-9 Urine Specific [place] 1.015 L 1.016-1.022 Urine Protein NEGATIVE NEGATIVE Urine Glucose (UA) NEGATIVE NEGATIVE Urine Ketones NEGATIVE NEGATIVE Urine Nitrite NEGATIVE NEGATIVE Urine Bilirubin NEGATIVE NEGATIVE Urine Urobilinogen 0.2 < = 1.0 MG/DL Urine Leukocyte Esterase NEGATIVE NEGATIVE Urine RBC (Auto) NEGATIVE NEGATIVE Urine RBC NONE /HPF Urine WBC RARE /HPF Urine Crystals NONE /LPF Urine Bacteria NONE /HPF Urine Casts NONE /LPF Urine Mucus NEGATIVE /LPF Urine Culture Indicated NO Urine Opiates Screen POSITIVE H NEGATIVE Urine Oxycodone Screen POSITIVE H NEGATIVE Urine Methadone Screen NEGATIVE NEGATIVE Urine Propoxyphene Screen NEGATIVE NEGATIVE Urine Barbiturates Screen NEGATIVE NEGATIVE Ur Tricyclic Antidepressants Screen NEGATIVE NEGATIVE Urine Phencyclidine Screen NEGATIVE NEGATIVE Urine Amphetamines Screen NEGATIVE NEGATIVE Urine Methamphetamines Screen NEGATIVE NEGATIVE Urine Benzodiazepines Screen NEGATIVE NEGATIVE Urine Cocaine Screen NEGATIVE NEGATIVE Urine Cannabinoids Screen NEGATIVE NEGATIVE My Orders Orders - OLEG GUERRA MD Ed Iv/Invasive Line Start (07/06/20 09:35) Cbc With Automated Diff (07/06/20 09:35) Comprehensive Metabolic Panel (07/06/20 09:35) Drug Screen Urine Cl(Send Out) (07/06/20 09:35) Urinalysis (07/06/20 09:35) Naloxone Injection (Narcan Injection) (07/06/20 09:45) Naloxone Injection (Narcan Injection) (07/06/20 09:35) Drug Screen Stat (Urine) (07/06/20 10:28) Vital Signs/I&O 07/06/20 10:09 Temp 36.9 Pulse 75 Resp 16 B/P (MAP) 148/91 (110) Pulse Ox 91 O2 Delivery Room Air Capillary Refill : Progress Note : Time: 10:12 Progress Note Patient was given IV Narcan. Patient is awake at this time. Patient believes that she might have accidentally taken too much pain medicine. Patient states she took 2 oxycodone that was prescribed at discharge and took additional 2 hydrocodone due to the pain. Apparently she had a hydrocodone prior to surgery. We'll continue to monitor the patient. 1030 I did discuss at length with Dr. Whittaker. Patient be transferred to [facility] approximately observation related to axonal overdose. Departure Impression Primary Impression: Accidental overdose Disposition: 02 XFER SHT-TRM HOSP Condition: Stable Admissions Decision to Admit Reason: Admit from ER (General) Transfer Transfer Reason: Exceeds level of care Time Spoke to Accepting Phy: 10:[address] Whittaker Transfer Time: 10:35 Transfer Facility: [facility] Method of Transfer: EMS Departure-Patient Inst. Referrals: MARCOS HAINES MD (PCP/Family) Primary Care Physician OLEG GUERRA MD Jul 06, 2020 09:38
[2020-07-06] MEDS ORDERED: NALOXONE 0.4 MG/ML 1 ML (NARCAN) VIAL IV ONE (09:45)
[2020-07-06 09:54] LABS: BASOPHILS % (AUTO) 1 % (0-10); EOSINOPHILS % (AUTO) 2 % (0-10); HEMATOCRIT 35 % (35-52); HEMOGLOBIN 11.4 G/DL (11.5-16.0); LYMPHOCYTES # (AUTO) 2.6 X 10^3 (1.0-4.0); LYMPHOCYTES % (AUTO) 23 % (12-44); MEAN CORPUSCULAR HEMOGLOBIN 31 PG (25-34); MEAN CORPUSCULAR HGB CONC 33 G/DL (32-36); MEAN CORPUSCULAR VOLUME 95 FL (80-99); MONOCYTES # (AUTO) 0.6 X 10^3 (0.0-1.0); MONOCYTES % (AUTO) 5 % (0-12); NEUTROPHILS # (AUTO) 7.6 X 10^3 (1.8-7.8); NEUTROPHILS % (AUTO) 69 % (42-75); PLATELET COUNT 419 10^3/uL (130-400)
[2020-07-06 09:55] LABS: BASOPHILS # (AUTO) 0.1 10^3/uL (0.0-0.1); EOSINOPHILS # (AUTO) 0.2 10^3/uL (0.0-0.3)
[2020-07-06 10:14] LABS: ALBUMIN 3.5 GM/DL (3.2-4.5); BILIRUBIN,TOTAL 0.3 MG/DL (0.1-1.0); CALCIUM 8.8 MG/DL (8.5-10.1); CREATININE SERUM 1.12 MG/DL (0.60-1.30); POTASSIUM 3.7 MMOL/L (3.6-5.0); TOTAL PROTEIN 6.4 GM/DL (6.4-8.2)
[2020-07-06 10:17] LABS: BILIRUBIN,URINE NEGATIVE (NEGATIVE); CLARITY,URINE CLEAR; COLOR,URINE YELLOW; GLUCOSE, URINE (UA) NEGATIVE (NEGATIVE); KETONES,URINE NEGATIVE (NEGATIVE); LEUKOCYTE ESTERASE ,URINE NEGATIVE (NEGATIVE); NITRITE,URINE NEGATIVE (NEGATIVE); PH,URINE 6.5 (5-9); PROTEIN,URINE NEGATIVE (NEGATIVE); WBC,URINE RARE /HPF
[2020-07-06 10:31] LABS: AMPHETAMINE SCREEN, URINE NEGATIVE (NEGATIVE); BARBITURATE SCREEN URINE NEGATIVE (NEGATIVE); BENZODIAZEPINES SCREEN URINE NEGATIVE (NEGATIVE); CANNABINOID SCREEN, URINE NEGATIVE (NEGATIVE); COCAINE SCREEN URINE NEGATIVE (NEGATIVE); METHADONE STAT NEGATIVE (NEGATIVE); METHAMPHETAMINE SCREEN URINE S NEGATIVE (NEGATIVE); OPIATE SCREEN URINE POSITIVE (NEGATIVE); OXYCODONE STAT POSITIVE (NEGATIVE); PROPOXYPHENE STAT NEGATIVE (NEGATIVE); TRICYCLIC ANTIDEPRESSANTS SCRE NEGATIVE (NEGATIVE)
--- NOTE | 2020-07-06 11:48 | NUR ---
Attempted to call report, no answer. Left message with aboriginal community council member to have receiving nurse call for report when she is ready. Informed aboriginal community council member that patient departed the [facility] at 1140.
--- NOTE | 2020-07-06 12:46 | History & Physical-Hospitalist ---
History of Present Illness HPI/Chief Complaint CC: Accidental OD on narcs HPI: This is a 54yoWF clinic patient of [facility] who had lumbar spine surgery last week at [place] and had so much pain she was taking both Hydrocodone and Percocet and became lethargic and required Narcan for reversal. Currently she is having a lot of pain and nausea. Source: patient, RN/MD Exam Limitations: clinical condition Date Seen 07/06/20 Time Seen by a Provider: 12:30 Attending Physician PCP Laurence Harris MD Referring Physician Date of Admission Home Medications & Allergies Home Medications Reviewed patient Home Medication Reconciliation performed by pharmacy medication reconciliations instrumentation technician and/or nursing. Patients Allergies have been reviewed. Allergies Allergies Coded Allergies diphenhydramine (Verified Allergy, Severe, EYES SWELL , 10/19/19) ibuprofen (Verified Allergy, Severe, EYES SWELL, 10/19/19) naproxen (Verified Allergy, Severe, EYE SWELLS, 10/19/19) acetaminophen (Verified Allergy, Mild, ITCH ALL OVER, 10/27/19) PT HAS TAKEN PERCOCET BEFORE sulfamethoxazole (Verified Allergy, Mild, Itching, 10/19/19) trimethoprim (Verified Allergy, Mild, Itching, 10/19/19) Past Fkugtli-Kypizm-Rmoxhy Hx Past Med/Social Hx: Reviewed Nursing Past Med/Soc Hx, Reviewed and Corrections made Patient Social History Employed/Student: unemployed Smoking Status: Unknown if Ever Smoked 2nd Hand Smoke Exposure: No Recent Foreign Travel: No Contact w/other who traveled: No Recent Hopitalizations: No Recent Infectious Disease Expo: No Immunizations Up To Date Date of Pneumonia Vaccine: Jun 07, 2018 Date of Influenza Vaccine: Oct 11, 2019 Seasonal Allergies Seasonal Allergies: No Past Medical History Surgeries: Joint Replacement, Orthopedic Neurological: Neuropathy Gastrointestinal: Diverticulosis Musculoskeletal: Arthritis, Chronic Back Pain History of Blood Disorders: No Family History Arthritis G8 SISTER Cardiovascular disease 19 FATHER Diabetes mellitus G8 SISTER Dysphasia 19 MOTHER Respiratory disorder 19 FATHER (lung cancer) 19 MOTHER (lung ca) Review of Systems Constitutional: see HPI Physical Exam Physical Exam Vital Signs Vital Signs - First Documented 07/06/20 10:09 Temp 36.9 Pulse 75 Resp 16 B/P (MAP) 148/91 (110) Pulse Ox 91 O2 Delivery Room Air Capillary Refill : Less Than 3 Seconds Height, Weight, BMI Height: 5'2.00" Weight: 297lbs. 1.0oz. 134.318924jl; 40.00 BMI Method: General Appearance: Anxious, Chronically ill, Moderate Distress Respiratory: Lungs Clear, Normal Breath Sounds Cardiovascular: Regular Rate, Rhythm Neurologic/Psychiatric: Alert, Oriented x3, Depressed Affect Results Results/Procedures Labs Laboratory Tests 07/06/20 09:45 Patient resulted labs reviewed. Assessment/Plan Admission Diagnosis Assessment: OD accidental Severe back pain from recent surgery Neuropathy plan: Anti-emetics Monitor BP Admission Status: Inpatient Order (span 2 midnights) Reason for Inpatient Admission: OD Diagnosis/Problems Diagnosis/Problems (1) Accidental overdose Status: Acute TRACIE MONTGOMERY DO Jul 06, 2020 12:46
[2020-07-06] MEDS ORDERED: CATHETER FLUSH 10 ML SYR IV PRN (13:00)
[2020-07-06] MEDS ORDERED: ONDANSETRON 4 MG/2 ML (SDV) Z0FRAN IVP PRN (13:00)
[2020-07-06] MEDS ORDERED: LORazepam INJ 2 MG/ML (ATIVAN) VIAL IVP PRN (13:00)
[2020-07-06 13:26] VITALS: BP 142/79
[2020-07-06] MEDS: CATHETER FLUSH 10 ML SYR IV SCH ×2 (14:00→22:02)
--- NOTE | 2020-07-06 14:00 | NUR ---
patient snoring while sleeping. Inferior incisional wound assessed on posterior spine. surgery day/time unknown at this time. incision covered with steri-strips. incision is 11.5cm x 0.0cm x 0.0cm with a 3.0cm x 0.5 cm x 0.4cm gap, with 2 loosened steri strips and sero-sanguineous fluid draining from it. no warmth or induration noted at this time. The rest of the incision is well-approximated. Incision cleansed with alcohol swab, three new steri strips applied to gap area with dry gauze and island dressing covering to secure. Will con't to monitor.
[2020-07-06 14:03] VITALS: BP 142/79
[2020-07-06] MEDS ORDERED: POTA10TA6 PO (15:00)
[2020-07-06] MEDS ORDERED: DCS100C PO (15:00)
[2020-07-06] MEDS ORDERED: POLY17PO6 PO (15:00)
[2020-07-06] MEDS ORDERED: LIDO700A45 TOP (15:00)
[2020-07-06] MEDS ORDERED: BACL10TA PO (15:00)
[2020-07-06] MEDS ORDERED: OXYC10TA7 PO (15:00)
[2020-07-06] MEDS ORDERED: CETI1TAB61 PO (15:03)
--- NOTE | 2020-07-06 15:30 | NUR ---
UNABLE TO SPEAK WITH PT AT THIS TIME- THE NURSE LET ME KNOW THE PT WAS SLEEPING AND WOULD BE OUT OF IT FOR AWHILE. I LOOKED THRU THE PTS PHYSICAL CHART AND THERE WAS A MED LIST FROM [facility], I USED THAT AND THE EXT MED HISTORY TO COMPLETE THE MED REC SOON I CAN SPEAK WITH THE PT I WILL UPDATE THE MED REC/NOTES IF THERE ARE ANY CHANGES
--- NOTE | 2020-07-06 16:00 | NUR ---
Marisol Ortiz admitted to room 403-1, with an admitting diagnosis of accidental overdose , on 07/06/[address] [facility] via bed, accompanied by staff.MARISOL ORTIZ introduced to surroundings, call light, bed controls, phone, TV, temperature control, lights, meal times, smoking policy, visitor policy, side rail policy, bathrooms and showers. Patient Rights given to patient in the handbook.MARISOL ORTIZ verbalizes understanding that [facility] is not responsible for the loss or damage to any personal effects or valuables that are kept in the patients posession during their hospitalization.
[2020-07-06 16:13] VITALS: BP 134/86
--- NOTE | 2020-07-06 17:49 | NUR ---
Spoke with Dr. Ferrara at this time regarding the patient status and wound. Dr. Ferrara stated that he would assess it in AM after confirming patient status is stable and lab values.
--- NOTE | 2020-07-06 17:52 | NUR ---
Patient care transferred and report given to Ghada NGUYEN at this time. Patient resting with lights off.
--- NOTE | 2020-07-06 18:00 | NUR ---
RESTING IN BED, EASY TO AROUSE, BP 120/82, PULSE 82, O2 SAT 95 PERCENT, SCD'S ON, MEENA WELL, STATES LAST BM TODAY, DRESSING DRY AND INTACT TO BACK, NO C/O PAIN AT THIS TIME, DAUGHTER ROEL CALLED AND STATES BACK SURGERY WAS JUNE [address] SINCLAIR AT [facility] IN [place], SITE WITHOUT REDNESS OR SWELLING IN RIGHT HAND, CALL LIGHT WITHIN REACH.
[2020-07-06 18:33] VITALS: BP 120/82
[2020-07-06 19:23] VITALS: BP 119/81
[2020-07-06 23:26] VITALS: BP 110/68
[2020-07-07 03:08] VITALS: BP 120/63
[2020-07-07 05:09] LABS: BASOPHILS # (AUTO) 0.1 10^3/uL (0.0-0.1); BASOPHILS % (AUTO) 1 % (0-10); EOSINOPHILS # (AUTO) 0.1 10^3/uL (0.0-0.3); EOSINOPHILS % (AUTO) 1 % (0-10); HEMATOCRIT 34 % (35-52); HEMOGLOBIN 10.9 g/dL (11.5-16.0); LYMPHOCYTES # (AUTO) 1.7 10^3/uL (1.0-4.0); LYMPHOCYTES % (AUTO) 19 % (12-44); MEAN CORPUSCULAR HEMOGLOBIN 31 pg (25-34); MEAN CORPUSCULAR HGB CONC 32 g/dL (32-36); MEAN CORPUSCULAR VOLUME 97 fL (80-99); MEAN PLATELET VOLUME 8.9 fL (9.0-12.2); MONOCYTES # (AUTO) 0.3 10^3/uL (0.0-1.0); MONOCYTES % (AUTO) 3 % (0-12); NEUTROPHILS # (AUTO) 7.1 10^3/uL (1.8-7.8); NEUTROPHILS % (AUTO) 76 % (42-75); PLATELET COUNT 334 10^3/uL (130-400); WHITE BLOOD COUNT 9.3 10^3/uL (4.3-11.0)
[2020-07-07 05:32] LABS: ALBUMIN 3.2 GM/DL (3.2-4.5); CHLORIDE 103 MMOL/L (98-107); POTASSIUM 4.1 MMOL/L (3.6-5.0); SODIUM 142 MMOL/L (135-145)
[2020-07-07 05:34] LABS: CALCIUM 8.5 MG/DL (8.5-10.1)
[2020-07-07 05:35] LABS: GLUCOSE 111 MG/DL (70-105); TOTAL PROTEIN 6.1 GM/DL (6.4-8.2)
[2020-07-07 05:36] LABS: BILIRUBIN,TOTAL 0.4 MG/DL (0.1-1.0); CARBON DIOXIDE 27 MMOL/L (21-32)
[2020-07-07 05:38] LABS: ALKALINE PHOSPHATASE 72 U/L (40-136); CREATININE SERUM 0.92 MG/DL (0.60-1.30); GFR ESTIMATED > 60
[2020-07-07 05:39] LABS: BUN/CREATININE RATIO 10
[2020-07-07 05:41] LABS: ALANINE AMINOTRANSFERASE 10 U/L (0-55)
[2020-07-07] MEDS: CATHETER FLUSH 10 ML SYR IV SCH ×3 (06:29→20:48)
[2020-07-07 08:00] VITALS: BP 148/74
--- NOTE | 2020-07-07 09:51 | NUR ---
DR WEBBER HERE, ASSESSED PATIENT AND INCISION. NEW ORDERS RECEIVED. CONT TO MONITOR.
[2020-07-07] MEDS: ENOXAPARIN 40 MG/0.4 ML (LOVENOX) SYR SC SCH ×2 (10:14→20:48)
--- NOTE | 2020-07-07 10:17 | Physical Therapy Evaluation ---
PT Evaluation-General Medical Diagnosis Admission Date Jul 06, 2020 at 12:47 Medical Diagnosis: s/p lumbar fusion Onset Date: Jun 26, 2020 Therapy Diagnosis Therapy Diagnosis: lumbago Height/Weight Height (Feet): 5 Height (Inches): 2.00 Weight (Pounds): 297 Weight (Ounces): 1.0 Precautions Precautions/Isolations: Fall Prevention, Standard Precautions Weight Bear Status Right Lower Extremity: Right Weight Bearing/Tolerated Left Lower Extremity: Left Weight Bearing/Tolerated Referral Physician: Alem Reason for Referral: Evaluation/Treatment Medical History Pertinent Medical History: Diverticulitis, OA Social History Current Living Status: Other Family Prior Prior Level of Function SCALE: Activities may be completed with or without assistive devices. 8-Hoissrmfto-rqspngf completes the activity by him/herself with no assistance from a helper. 5-Set-up or Clean-up Assistance-helper sets up or cleans up; patient completes activity. [place] assists only prior to or following the activity. 4-Supervision or Touching Assistance-helper provides verbal cues and/or touching/steadying and/or contact guard assistance as patient completes activity. Assistance may be provided throughout the activity or intermittently. 3-Partial/Moderate Assistance-helper does LESS THAN HALF the effort. [place] lifts, holds or supports trunk or limbs, but provides less than half the effort. 2-Substantial/Maximal Assistance-helper does MORE THAN HALF the effort. [place] lifts or holds trunk or limbs and provides more than half the effort. 8-Egxirdyyt-wtemsb does ALL the effort. Patient does none of the effort to complete the activity. Or, the assistance of 2 or more helpers is required for the patient to complete the activity. If activity was not attempted, code reason: 7-Patient Refused. 9-Not Applicable-not attempted and the patient did not perform the activity before the current illness, exacerbation or injury. 10-Not Attempted due to Environmental Limitations-(lack of equipment, weather restraints, etc.). 88-Not Attempted due to Medical Conditions or Safety Concerns. Bed Mobility: 6 Transfers (B,C,W/C): 6 Gait: 6 Stairs: 6 PT Evaluation-Current Subjective The patient states that she has had severe pain since surgery and that she was taking too much pain medicine and fell. Pain Numeric Pain Scale: 10-Worst Possible Pain Location Body Site: Back ROM/Strength Strength Lower Extremities 4+/5 (R) LE, 2+/5 (L) knee extension Integumentary/Posture Integumentary drainage from incision Transfers Roll Left to Right (QC): 4 Sit to Lying (QC): 4 Lying to Sitting/Side of Bed(Q: 4 Sit to Stand (QC): 4 Gait Does the Patient Walk?: No and Walking Goal IS indicated Anticipated Mode of Locomotion: Walk Comments/Gait Description Patient unable to stand secondary to increased pain Balance Sitting Static: Good Sitting Dynamic: Fair Assessment/Needs 54 y.o. male s/p L4/5 lumbar fusion. She has significant pain that is causing difficulty with transitional movements and functional mobility. Rehab Potential: Good PT Short Term Goals Short Term Goals Time Frame: Jul 14, 2020 Roll Left & Right: 5 Sit to lyin Lying to sitting on side of be: 5 Sit to stand: 5 Chair/tcp-th-zszzw transfer: 5 Toilet transfer: 5 Car transfer: 5 Walk 10 feet: 5 Walk 50 feet with two turns: 5 Walk 150 feet: 5 1 step (curb): 5 PT Canteen Manager Goals [facility] Goals PT Canteen Manager Goals Time Frame: Jul 21, 2020 Roll Left & Right (QC): 6 Sit to Lying (QC): 6 Lying-Sitting on Side/Bed(QC): 6 Sit to Stand (QC): 6 Chair/Ivg-ah-Uvowl Xfer(QC): 6 Toilet Transfer (QC): 6 Car Transfer (QC): 6 Does the Patient Walk: No and Walking Goal IS indicated Walk 10 feet (QC): 6 Walk 50ft with 2 Turns (QC): 6 Walk 150 ft (QC): 6 1 Step (curb) (QC): 6 PT Plan Problem List Problem List: Activity Tolerance, Functional Strength, Safety, Balance, Gait, Transfer, Bed Mobility, ROM Treatment/Plan Treatment Plan: Continue Plan of Care Treatment Plan: Bed Mobility, Functional Activity Mai, Functional Strength, Gait, Safety, Therapeutic Exercise, Transfers Treatment Duration: Jul 21, 2020 Frequency: 11 times per week Estimated Hrs Per Day: .5 hour per day Time/GCodes Time In: 0955 Time Out: 1010 Total Billed Treatment Time: 15 Total Billed Treatment 1, EV low complexity x 15' ALONZO DASILVA PT Jul 07, 2020 10:17
[2020-07-07] MEDS: GABAPENTIN 400 MG (NEURONTIN) CAP PO SCH ×3 (10:18→20:47)
--- NOTE | 2020-07-07 11:20 | Progress Note - Hospitalist ---
Subjective HPI/CC On Admission Date Seen by Provider: Jul 07, 2020 Time Seen by Provider: 11:16 CC: Accidental OD on narcs HPI: This is a 54yoWF clinic patient of [facility] who had lumbar spine surgery last week at [facility] and had so much pain she was taking both Hydrocodone and Percocet and became lethargic and required Narcan for reversal. Currently she is having a lot of pain and nausea. Subjective/Events-last exam Patient awake and alert this morning reporting low back pain which is been about the same since her surgery. Nursing staff report a lot of serosanguineous drainage persisting. Patient denies headache and denies nausea. She reports her allergy to ibuprofen and Aleve which causes itching and swelling. She reports that she had been on 800 mg of gabapentin for some time apparently for lumbar radiculopathy she's not aware of history of peripheral neuropathy. Objective Exam Vital Signs Vital Signs Date Time Temp Pulse Resp B/P (MAP) Pulse Ox O2 Delivery O2 Flow Rate FiO2 07/07/20 08:56 Room Air 07/07/20 08:00 35.9 83 20 148/74 (98) 95 Capillary Refill : Less Than 3 Seconds General Appearance: Mild Distress Respiratory: Chest Non Tender, Lungs Clear, Normal Breath Sounds, No Accessory Muscle Use, No Respiratory Distress Cardiovascular: Regular Rate, Rhythm, No Edema, No Gallop, No JVD, No Murmur, Normal Peripheral Pulses Back: Other (there is serosanguineous drainage from the base of the surgical incision over the length of the lumbar spine there is no induration noted there is no significant erythema and there is no significant pain to palpation along the wound margins) Results/Procedures Lab Laboratory Tests 07/07/20 04:32 Patient resulted labs reviewed. Assessment/Plan Assessment and Plan Assess & Plan/Chief Complaint 1. Inadvertent narcotic overdose improved. Patient still having a lot of drainage and discomfort but there is no evidence to suggest infection at this time. She is quite weak and a significant fall risk due to the significant amount of drainage her weakness will continue to monitor likely over the weekend. Will resume gabapentin and hold narcotic therapy for now. Unfortunately she is not a candidate for nonsteroidal medications due to itching and swelling with ibuprofen and Aleve likely indicative of a class effect. We will initiate tramadol for pain control. Clinical Quality Measures DVT/VTE Risk/Contraindication: Risk Factor Score Per Nursin RFS Level Per Nursing on Admit: 4+=Very High LAM WEBBER MD Jul 07, 2020 11:20
[2020-07-07 12:00] VITALS: BP 124/64
[2020-07-07] MEDS ORDERED: GABAPENTIN 600 MG (NEURONTIN) TAB PO SCH (14:00)
[2020-07-07 15:39] VITALS: BP 142/76
[2020-07-07 19:52] VITALS: BP 125/70
[2020-07-08 00:25] VITALS: BP 130/84
[2020-07-08] MEDS: GABAPENTIN 400 MG (NEURONTIN) CAP PO SCH ×3 (06:04→21:33)
[2020-07-08] MEDS: CATHETER FLUSH 10 ML SYR IV SCH ×3 (06:05→21:34)
[2020-07-08 08:00] VITALS: BP 121/76
--- NOTE | 2020-07-08 09:32 | Progress Note - Hospitalist ---
Subjective HPI/CC On Admission Date Seen by Provider: Jul 08, 2020 Time Seen by Provider: 08:00 CC: Accidental OD on narcs HPI: This is a 54yoWF clinic patient of [facility] who had lumbar spine surgery last week at [facility] and had so much pain she was taking both Hydrocodone and Percocet and became lethargic and required Narcan for reversal. Currently she is having a lot of pain and nausea. Subjective/Events-last exam Patient awake alert appears to be in better spirits this morning. She reports right foot pain even to light touch and intermittent. She has had no chills or fever mild back pain over the lumbar incision and sanguinous drainage nonpurulent persists possibly diminishing. She reports her daughter is bringing her back brace and her home walker. Objective Exam Vital Signs Vital Signs Date Time Temp Pulse Resp B/P (MAP) Pulse Ox O2 Delivery O2 Flow Rate FiO2 07/08/20 08:00 36.2 84 20 121/76 (91) 97 Room Air Capillary Refill : Less Than 3 Seconds General Appearance: No Apparent Distress Respiratory: Chest Non Tender, Lungs Clear, Normal Breath Sounds, No Accessory Muscle Use, No Respiratory Distress Cardiovascular: Regular Rate, Rhythm, No Edema, No Gallop, No JVD, No Murmur, Normal Peripheral Pulses Back: Other (Patient still has serosanguineous fluid draining from the bottom of the surgical wound but otherwise looks clean with no erythema no induration.) Extremity: No Pedal Edema, Other (Allodynia noted to light touch with no visible abnormalities of the right foot or ankle no swelling no evidence for arthritis inflammatory or otherwise) Results/Procedures Lab Patient resulted labs reviewed. Assessment/Plan Assessment and Plan Assess & Plan/Chief Complaint 1. Inadvertent narcotic overdose improved. Patient still having a lot of drainage and discomfort but there is no evidence to suggest infection at this time. She is quite weak and a significant fall risk due to the significant amount of drainage her weakness will continue to monitor likely over the weekend. Will resume gabapentin and hold narcotic therapy for now. Unfortunately she is not a candidate for nonsteroidal medications due to itching and swelling with ibuprofen and Aleve likely indicative of a class effect. Initiated tramadol yesterday on a as needed basis which appears to be helping. That she had thought that it may have caused some itching in the past as well but no itching reported so far today no evidence for rash. Will plan ambulation when the patient's back brace and home walker are available with physical therapy consultation in the morning discharge if the patient is stable. 2. Continued neuropathic pain postop although improved post what appears to be multilevel lumbar laminectomy Clinical Quality Measures DVT/VTE Risk/Contraindication: Risk Factor Score Per Nursin RFS Level Per Nursing on Admit: 4+=Very High LAM WEBBER MD Jul 08, 2020 09:32
[2020-07-08] MEDS: ENOXAPARIN 40 MG/0.4 ML (LOVENOX) SYR SC SCH ×2 (09:34→21:34)
[2020-07-08 15:56] VITALS: BP 133/72
[2020-07-09 00:28] VITALS: BP 111/76
[2020-07-09 05:03] LABS: BASOPHILS # (AUTO) 0.1 10^3/uL (0.0-0.1); BASOPHILS % (AUTO) 1 % (0-10); EOSINOPHILS # (AUTO) 0.3 10^3/uL (0.0-0.3); EOSINOPHILS % (AUTO) 3 % (0-10); HEMATOCRIT 34 % (35-52); HEMOGLOBIN 10.8 g/dL (11.5-16.0); LYMPHOCYTES # (AUTO) 2.8 10^3/uL (1.0-4.0); LYMPHOCYTES % (AUTO) 24 % (12-44); MEAN CORPUSCULAR HEMOGLOBIN 31 pg (25-34); MEAN CORPUSCULAR HGB CONC 32 g/dL (32-36); MEAN CORPUSCULAR VOLUME 96 fL (80-99); MEAN PLATELET VOLUME 9.9 fL (9.0-12.2); MONOCYTES # (AUTO) 0.6 10^3/uL (0.0-1.0); MONOCYTES % (AUTO) 5 % (0-12); NEUTROPHILS # (AUTO) 7.9 10^3/uL (1.8-7.8); NEUTROPHILS % (AUTO) 67 % (42-75); PLATELET COUNT 308 10^3/uL (130-400); WHITE BLOOD COUNT 11.9 10^3/uL (4.3-11.0)
[2020-07-09] MEDS: GABAPENTIN 400 MG (NEURONTIN) CAP PO SCH ×2 (05:54→13:01)
[2020-07-09] MEDS: CATHETER FLUSH 10 ML SYR IV SCH ×2 (05:54→12:38)
[2020-07-09 08:00] VITALS: BP 106/74
[2020-07-09] MEDS: ENOXAPARIN 40 MG/0.4 ML (LOVENOX) SYR SC SCH (08:45)
--- NOTE | 2020-07-09 10:04 | Physical Therapy Daily Note ---
PT Daily Note-Current Subjective Patient has been up ad akhil in room and reports she is feeling much better and hopes to go home. Agrees to PT. Pain Numeric Pain Scale: 4 Location: Lower Location Body Site: Back Pain Description: Acute Mental Status Patient Orientation: Normal For Age Transfers SCALE: Activities may be completed with or without assistive devices. 2-Yybwlscmft-umzpina completes the activity by him/herself with no assistance from a helper. 5-Set-up or Clean-up Assistance-helper sets up or cleans up; patient completes activity. [place] assists only prior to or following the activity. 4-Supervision or Touching Assistance-helper provides verbal cues and/or touching/steadying and/or contact guard assistance as patient completes activity. Assistance may be provided throughout the activity or intermittently. 3-Partial/Moderate Assistance-helper does LESS THAN HALF the effort. [place] lifts, holds or supports trunk or limbs, but provides less than half the effort. 2-Substantial/Maximal Assistance-helper does MORE THAN HALF the effort. [place] lifts or holds trunk or limbs and provides more than half the effort. 6-Pcrjlbyyw-boxckb does ALL the effort. Patient does none of the effort to complete the activity. Or, the assistance of 2 or more helpers is required for the patient to complete the activity. If activity was not attempted, code reason: 7-Patient Refused. 9-Not Applicable-not attempted and the patient did not perform the activity before the current illness, exacerbation or injury. 10-Not Attempted due to Environmental Limitations-(lack of equipment, weather restraints, etc.). 88-Not Attempted due to Medical Conditions or Safety Concerns. Lying to Sitting/Side of Bed(Q: 6 Sit to Stand (QC): 6 Chair/Lxt-lb-Ybqgb Xfer(QC): 6 Weight Bearing Right Lower Extremity: Right Weight Bearing/Tolerated Left Lower Extremity: Left Weight Bearing/Tolerated Gait Training Does the Patient Walk?: Yes Distance: 600' Walk 10 feet (QC): 6 Walk 50 ft with 2 Turns(QC): 6 Walk 150 ft (QC): 6 Gait Assistive Device: FWW slight trunk flexed posture with FWW use Exercises Seated Therapy Exercises: Ankle pumps, Long arc quads, Hip flexion Seated Reps: 15 Assessment Current Status: Excellent Progress Patient dons back brace independently. Patient currently at [facility] with all gross motor skills safely. PT to dismiss patient from services at this time. PT Short Term Goals Short Term Goals Time Frame: Jul 14, 2020 Roll Left & Right: 5 Sit to lyin Lying to sitting on side of be: 5 Sit to stand: 5 Chair/nsw-hy-grwtz transfer: 5 Toilet transfer: 5 Car transfer: 5 Walk 10 feet: 5 Walk 50 feet with two turns: 5 Walk 150 feet: 5 1 step (curb): 5 PT Server Assistant Goals Server Assistant Goals PT Server Assistant Goals Time Frame: Jul 21, 2020 Roll Left & Right (QC): 6 Sit to Lying (QC): 6 Lying-Sitting on Side/Bed(QC): 6 Sit to Stand (QC): 6 Chair/Zhb-hf-Quwbz Xfer(QC): 6 Toilet Transfer (QC): 6 Car Transfer (QC): 6 Does the Patient Walk: No and Walking Goal IS indicated Walk 10 feet (QC): 6 Walk 50ft with 2 Turns (QC): 6 Walk 150 ft (QC): 6 1 Step (curb) (QC): 6 PT Plan Treatment/Plan Treatment Plan: Discontinue PT Treatment Plan: Bed Mobility, Functional Activity Mai, Functional Strength, Gait, Safety, Therapeutic Exercise, Transfers Treatment Duration: Jul 21, 2020 Frequency: 11 times per week Estimated Hrs Per Day: .5 hour per day Time/GCodes Time In: 830 Time Out: 844 Total Billed Treatment Time: 14 Total Billed Treatment 1 visit FA 14 min BJORN ESPANA PT Jul 09, 2020 10:04
[2020-07-09] MEDS ORDERED: TRM50T PO (10:24)
--- NOTE | 2020-07-09 11:31 | Discharge Summary ---
Discharge Summary Hospital Course Hospital Course Date of Admission: Jul 06, 2020 at 12:47 Admission Diagnosis : Accidental overdose Recent back surgery Family Physician/Provider: Marcos Haines MD Date of Discharge: 07/09/20 Discharge Diagnosis: Accidental overdose Hospital Course: Pt had recent back surgery and had nonintentional overdose with combination of oxycodone and hydrocodone. She was admitted and after medication cleared, she is feeling well and ready to go home, pain is managed on tramadol and gabapentin. She worked with PT and did not need more than what was planned for outpatient PT, so she was discharged to home. Labs and Pending Lab Test: Laboratory Tests 07/09/20 04:20: White Blood Count 11.9H, Red Blood Count 3.52L, Hemoglobin 10.8L, Hematocrit 34L , Mean Corpuscular Volume 96, Mean Corpuscular Hemoglobin 31, Mean Corpuscular Hemoglobin Concent 32, Red Cell Distribution Width 12.7, Platelet Count 308, Mean Platelet Volume 9.9, Immature Granulocyte % (Auto) 1, Neutrophils (%) (Auto) 67, Lymphocytes (%) (Auto) 24, Monocytes (%) (Auto) 5, Eosinophils (%) (Auto) 3, Basophils (%) (Auto) 1, Neutrophils # (Auto) 7.9H, Lymphocytes # (Auto) 2.8, Monocytes # (Auto) 0.6, Eosinophils # (Auto) 0.3, Basophils # (Auto) 0.1, Immature Granulocyte # (Auto) 0.2H Home Meds Active Tramadol HCl 50 Mg Tablet 50 Mg PO TID PRN Reported Zyrtec-D Tablet (Cetirizine HCl/Pseudoephedrine) 1 Each Tab.er.12h 1 Each PO Q12H PRN Miralax (Polyethylene Glycol 3350) 17 Gm Powd.pack 17 Gm PO DAILY PRN Klor-Con 10 (Potassium Chloride) 10 Meq Tablet.er 10 Meq PO DAILY Lidocaine 5% Patch (Lidocaine) 1 Each Adh..patch 1 Pat TOP DAILY Dok (Docusate Sodium) 100 Mg Capsule 100 Mg PO BID PRN Oxycodone HCl 10 Mg Tablet 10 Mg PO Q8H PRN Baclofen 10 Mg Tablet 10 Mg PO TID PRN Folic Acid 1 Mg Tablet 1 Mg PO SUMOTUTHFRSA DOES NOT TAKE ON DAYS SHE TAKES METHOTREXATE Methotrexate (Methotrexate Sodium) 2.5 Mg Tablet 15 Mg PO WE TAKES 6 (2.5MG) TABLETS Gabapentin 800 Mg Tablet 800 Mg PO TID Assessment/Pt DC Instructions Follow up with Dr. Haines on 07/11 at 12 pm. Discharge Diet: Regular Diet Activity as Tolerated: No (Per Orthopedic Surgery recommendations) Discharge Physical Examination Allergies: Coded Allergies: diphenhydramine (Verified Allergy, Severe, EYES SWELL , 10/19/19) ibuprofen (Verified Allergy, Severe, EYES SWELL, 10/19/19) naproxen (Verified Allergy, Severe, EYE SWELLS, 10/19/19) acetaminophen (Verified Allergy, Mild, ITCH ALL OVER, 10/27/19) PT HAS TAKEN PERCOCET BEFORE sulfamethoxazole (Verified Allergy, Mild, Itching, 10/19/19) trimethoprim (Verified Allergy, Mild, Itching, 10/19/19) General Appearance: No Apparent Distress, WD/WN Respiratory: Lungs Clear, Normal Breath Sounds Cardiovascular: Regular Rate, Rhythm, No Murmur Extremity: No Pedal Edema Skin: Normal Color, Warm/Dry Neurologic/Psychiatric: Alert, Oriented x3, Normal Mood/Affect Copy Copies To 1: MARCOS HAINES MD Clinical Quality Measures DVT/VTE Risk/Contraindication: Risk Factor Score Per Nursin RFS Level Per Nursing on Admit: 4+=Very High CONNER BILLY MD Jul 09, 2020 11:31
[2020-07-09] MEDS ORDERED: TRAM50TA3 PO (11:33)
--- NOTE | 2020-07-09 11:34 | NUR ---
CM/SS visited with the patient for discharge planning. Plan: Patient will discharge to home today 07/09. The patient's daughter is picking her up at 3:00 p.m. No needs at this time. Home: Patient lives a home alone with her dog. She states that she has been receiving assistance from her daughter and son. The patient's daughter is helping with food, cleaning, and things that require lifting. Equipment: The patient reports that she has a walker and back brace. Physical therapy: Patient uses [facility] for her therapy needs. The patient has used them after all of her surgeries. She states she is calling this week to set it up. No further needs at this time.
[2020-07-09 15:55] VITALS: BP 124/81
[2020-07-09 16:00] VITALS: BP 124/81
== END 2020-07-09 10:20 | disposition home or self-care (01) ==
LOC: EDUNIT# 09:29 → ER FS 09:30 → 4TH 12:20 → UNDOADMIN 12:47 → 4TH 12:47 → UNDODISIN 07-09 16:15
PROVIDERS: ADMIT Internal Medicine; ATTEND Family Medicine
DX: T40.2X1A Poisoning by other opioids, accidental (unintentional), initial encounter (principal); R53.83 Other fatigue; G89.18 Other acute postprocedural pain; M54.9 Dorsalgia, unspecified; G62.9 Polyneuropathy, unspecified; M19.91 Primary osteoarthritis, unspecified site; R11.0 Nausea; K57.90 Diverticulosis of intestine, part unspecified, without perforation or abscess without bleeding; Z96.652 Presence of left artificial knee joint; Z98.890 Other specified postprocedural states; Z91.81 History of falling
CPT/HCPCS: 36415; 80053 ×2; 80306; 81000; 85025 ×3; 96374; 97161; 97530; 99284; G0378

== ENCOUNTER → 2020-11-12 | Outpatient (CLI) | payer MEDICAID ==
[~2020-11-12] MED LIST changes: +BACL10TA PO; +DCS100C PO; -FOLI1TAB24 PO; +FOLI1TAB33 PO; +LIDO700A45 TOP; +OXYC10TA7 PO; +POLY17PO6 PO; +POTA10TA6 PO; +TRAM50TA3 PO; +TRM50T PO
--- NOTE | 2020-11-12 10:07 | Diagnostic Imaging Report ---
PROCEDURE: CT lumbar spine without contrast. TECHNIQUE: Multiple contiguous axial images were obtained through the lumbar spine without the use of intravenous contrast. Sagittal and coronal reformations were then performed. Auto Exposure Controls were utilized during the CT exam to meet ALARA standards for radiation dose reduction. INDICATION: Lumbar spine fusion. COMPARISON: MRI lumbar spine without contrast 04/02/2020. FINDINGS: There are 5 lumbar-type vertebral bodies. Grade 1 anterolisthesis of L4 and L5 is stable. The grade 2 anterolisthesis of L3 on L4 has been reduced. New bilateral ulices and pedicle screw fixation with laminectomies and interbody devices at L3-L5. Hardware components appear intact. No evidence of loosening. Nonspecific fluid collection in the postoperative subcutaneous soft tissues measuring approximately 2.1 x 3.0 cm centered at the L2-L3 level. Vertebral body heights preserved. No fractures. No substantial osseous neural foraminal narrowing. The visualized pelvis is intact. IMPRESSION: 1. Interval bilateral ulices and pedicle screw fixation with laminectomies and interbody fusions at L3-L5. There has been reduction of the anterolisthesis of L3 on L4. Stable grade 1 anterolisthesis of L4 and L5. 2. Nonspecific fluid collection in the postoperative subcutaneous soft tissues may represent a benign seroma measuring up to 3.0 cm. Dictated by: Dictated on workstation # [id number]
== END ==
LOC: RAD FS 07:28
PROVIDERS: ATTEND Physician Assistant
DX: M43.16 Spondylolisthesis, lumbar region (principal); Z98.1 Arthrodesis status
CPT/HCPCS: 72131

== ENCOUNTER → 2021-03-01 | Outpatient (CLI) | payer MEDICAID ==
--- NOTE | 2021-03-01 12:04 | Diagnostic Imaging Report ---
INDICATION: Routine screening. COMPARISON is made with prior mammograms from 05/31/2019 and 08/12/2016. 2-D and 3-D bilateral screening mammography was performed with CAD. Both breasts are heterogeneously dense, limiting the sensitivity of mammography. A benign-appearing nodule in the outer right breast is stable. No spiculated mass or malignant-appearing microcalcifications are seen. Axillae are unremarkable. IMPRESSION: BI-RADS Category 2. No mammographic features suspicious for malignancy are identified. ACR BI-RADS Category 2: Benign findings. Result letter will be mailed to the patient. Note: At least 10% of breast cancer is not imaged by mammography. Dictated by: Dictated on workstation # [id number]
== END ==
LOC: RAD 09:30
PROVIDERS: ATTEND Family Medicine
DX: Z12.31 Encounter for screening mammogram for malignant neoplasm of breast (principal)
CPT/HCPCS: 77063; 77067

== ENCOUNTER → 2021-04-15 | Outpatient (CLI) | payer MEDICAID ==
--- NOTE | 2021-04-15 11:35 | Diagnostic Imaging Report ---
PROCEDURE: MRI lumbar spine. TECHNIQUE: Multiplanar, multisequence MRI of the lumbar spine was performed without contrast. INDICATION: Postoperative back pain. COMPARISON: Comparison with CT scan of 11/12/2020. FINDINGS: Fusion and laminectomy of L3 through L5 again noted. Alignment remains good. Body height is well maintained. Marrow signal is normal. The intervertebral spacers are in good position without encroachment upon the canal. There is no evidence of spinal stenosis. There is a subcutaneous fluid collection which is simple in nature measuring approximately 3.5 x 2.7 x 2.7 cm. This is posterior to the spinous processes in the subcutaneous fat. There is a second deeper fluid collection which shows some septations which is within the operative bed of the laminectomy. This does not appear to communicate with the CSF. This measures approximately 2.8 x 1.5 x 2 cm. The soft tissues otherwise appear normal. The cauda equina and conus medullaris appear normal. IMPRESSION: 1. No evidence of spinal stenosis or recurrent disc herniations. 2. Hardware appears in good position. 3. Simple-appearing subcutaneous fluid collection, consistent with seroma. Second septated fluid collection also likely represents small chronic seroma in the deeper soft tissues in the laminectomy bed. Dictated by: Dictated on workstation # [id number]
== END ==
LOC: RAD 08:00
PROVIDERS: ATTEND Orthopaedic Surgery Orthopaedic Surgery of the Spine
DX: M54.5 Low back pain (principal); G89.18 Other acute postprocedural pain; Z98.890 Other specified postprocedural states
CPT/HCPCS: 72148

== ENCOUNTER → 2023-06-08 | Outpatient (CLI) | payer MEDICARE, MEDICAID ==
[~2023-06-08] MED LIST changes: +CYCL10TA25 PO; -CYCL10TA9 PO; -DCS100C PO; +DOCU-239 PO; +POTA-160 PO; -POTA10TA6 PO
--- NOTE | 2023-06-08 13:11 | Diagnostic Imaging Report ---
PROCEDURE: MR imaging cervical spine without contrast. INDICATION: 57-year-old female, history of previous cervical spine surgery, continued pain. TECHNIQUE: Multiplanar, multisequence MR imaging of the cervical spine was performed without contrast. CORRELATION STUDY: MRI cervical spine 05/20/2018. FINDINGS: Anterior and posterior surgical changes of the cervical spine are again demonstrated. Anterior cervical decompression and fusion C5-C7. Posterior fusion C5-C7. There is significant metallic susceptibility artifact obscuring this regional anatomy of the spine. Cervical vertebral body heights are maintained. Odontoid intact. Craniocervical junction unremarkable. Alignment near-anatomic. The cord is of normal caliber and signal intensity. C2-C3 level: Mild left facet arthropathy with mild left foraminal narrowing. No significant canal narrowing. C3-C4 level: Mild degenerative changes of the uncovertebral joints with left greater than right facet arthropathy. Moderate foraminal narrowing left and mild right foraminal. Mild canal stenosis. C4-C5 level: Prominent degenerative change of the uncovertebral joints. Minimal disc bulge. Eabd-sm-hrwriqda facet arthropathy, left slightly greater than right. Minimal right foraminal narrowing. Moderate left foraminal narrowing. Moderate central canal narrowing. C5-C6 level: Posterior spondylitic ridging with ligamentum flavum buckling. This results in moderate central canal narrowing. Additional spur like formation posteriorly. Neuroforaminal regions are obscured by susceptibility artifact from the fusion hardware. C6-C7 level: There may be minimal bony fusion across the disc space. High degree canal and/or foraminal narrowing is not suggested. C7-T1 level: Minimal disc/osteophyte formation left of midline with left foraminal narrowing. No high degree canal or foraminal narrowing on the right. T1-T2 level: Mild disc bulge with mild foraminal narrowing bilaterally. IMPRESSION: 1. Extensive post operative changes of the cervical spine with anterior and posterior fusion C5-C7. There is moderate metallic susceptibility artifact limiting assessment. 2. Extensive areas of canal and foraminal narrowing are present as detailed above. Dictated by: Dictated on workstation # [id number]
== END ==
LOC: RAD 09:07
PROVIDERS: ATTEND Registered Nurse
DX: M47.812 Spondylosis without myelopathy or radiculopathy, cervical region (principal); M48.02 Spinal stenosis, cervical region; M51.34 Other intervertebral disc degeneration, thoracic region; M48.04 Spinal stenosis, thoracic region
CPT/HCPCS: 72141